=== PATIENT | female | born 1935 | race African-American/Black ===

== ENCOUNTER 2017-03-31 13:35 | Emergency (ER) | payer MEDICARE, MEDICAID ==
[~2017-03-31] VITALS: Ht 160 cm; Wt 82.0 kg
[2017-03-31] MEDS ORDERED: MORPHINE SULFATE 4 MG/ML CPJ (NOT FOR IM USE) IV STA (14:13)
[2017-03-31] MEDS ORDERED: ONDANSETRON HCL 4MG/2ML VIAL IV STA (14:13)
[2017-03-31] MEDS ORDERED: ASPIRIN 81MG TABLET PO ONE (14:15)
[2017-03-31] MEDS ORDERED: LABETALOL HCL 20MG/4ML CARPUJECT IV ONE (14:15)
[2017-03-31 15:06] LABS: BASOPHILS % 0.6 % (0.0-2.0); DIFFERENTIAL COMMENT 0; EOSINOPHILS % 4.4 % (0.0-5.0); HEMATOCRIT. 36.4 % (36.0-48.0); HEMOGLOBIN. 11.5 g/dL (12.0-16.0); LYMPHOCYTES % 20.8 % (20.0-50.0); MEAN CORPUSCULAR HEMOGLOBIN 25.2 pg (28.0-32.0); MEAN CORPUSCULAR HGB CONC 31.6 g/dL (31.0-37.0); MEAN CORPUSCULAR VOLUME 79.5 fL (81.0-99.0); MEAN PLATELET VOLUME 7.9 fl (7.4-10.4); MONOCYTES % 8.8 % (2.0-8.0); NEUTROPHILS % 65.4 % (40.0-76.0); PLATELET 295 x1000/uL (130-400); RED BLOOD CELL COUNT 4.57 mill/uL (4.2-5.4); RED CELL DISTRIBUTION WIDTH 18.4 % (11.6-14.6); WHITE BLOOD COUNT 5.4 x1000/uL (4.5-11.0)
[2017-03-31 15:22] LABS: ALANINE AMINOTRANSFERASE 11 IU/L (13-61); ANION GAP 10; CALCIUM 8.4 mg/dL (8.5-10.1); CARBON DIOXIDE 28 mEq/L (21-32); CHLORIDE 108 mEq/L (98-107); ETHANOL BLOOD < 10 mg/dL; INDEX HEMOLYSI 2 (1-3); INDEX ICTERIC 1 (1-4); INDEX LIPEMIC 1 (1-3); LIPASE 177 IU/L (73-393); NT PRO B-TYPE NATRIURETIC PEP 145 pg/mL (5-125); TROPONIN I < 0.02 ng/mL (0.00-0.04); UREA NITROGEN BLOOD 18 mg/dL (7-21); eGFR > 60 mL/min (>60)
[2017-03-31 15:59] LABS: D-DIMER 4.32 mg/L FEU (<0.50); PARTIAL THROMBOPLASTIN TIME 26.8 sec (24.0-34.0); PROTHROMBIN TIME 10.9 sec
[2017-03-31] MEDS ORDERED: SODIUM CHLORIDE 0.9% 1,000 ML IV NR (16:06)
[2017-03-31 17:39] VITALS: BP 172/77
[2017-03-31 19:35] LABS: CLARITY URINE CLEAR (CLEAR); COLOR URINE YELLOW (YELLOW); GLUCOSE URINE NEGATIVE (NEGATIVE); KETONES URINE NEGATIVE (NEGATIVE); LEUKOCYTE ESTERASE URINE NEGATIVE (NEGATIVE); NITRITE URINE NEGATIVE (NEGATIVE); OCCULT BLOOD URINE NEGATIVE (NEGATIVE); PH URINE 5.5 (4.5-8.0); PROTEIN URINE NEGATIVE (NEGATIVE); SPECIFIC GRAVITY URINE 1.088 (1.005-1.030)
[2017-03-31 20:25] LABS: *AMPHETAMINES SCREEN URINE NEGATIVE (NEGATIVE); *BARBITURATES SCREEN URINE NEGATIVE (NEGATIVE); *BENZODIAZEPINES SCREEN URINE NEGATIVE (NEGATIVE); *COCAINE SCREEN URINE NEGATIVE (NEGATIVE); CANNABINOID URINE SCREEN PRESUMTIVE POSITIVE (NEGATIVE); ECSTASY MDMA SCREEN URINE NEGATIVE (NEGATIVE); METHADONE URINE SCREEN NEGATIVE (NEGATIVE); OPIATES URINE SCREEN PRESUMTIVE POSITIVE (NEGATIVE); PHENCYCLIDINE URINE SCREEN NEGATIVE (NEGATIVE)
== END 2017-03-31 20:08 | disposition home or self-care (01) ==
LOC: ER 15:54
DX: J44.1 Chronic obstructive pulmonary disease with (acute) exacerbation (principal); G89.29 Other chronic pain; I10 Essential (primary) hypertension; I45.10 Unspecified right bundle-branch block; D50.9 Iron deficiency anemia, unspecified; F17.210 Nicotine dependence, cigarettes, uncomplicated
CPT/HCPCS: 36415; 71010; 71275; 80053; 80305; 81003; 83605; 83690; 83880; 84484; 85025; 85379; 85610; 85730; 93005; 96374; 96375; 99285; G0482; J2270; J2405; J3490

== ENCOUNTER 2021-03-26 10:16 | Inpatient (IN) | payer MEDICARE, MEDICAID ==
[~2021-03-26] VITALS: Ht 170.2 cm; Wt 81.4 kg
[~2021-03-26 10:16] MED LIST: APIX5TAB MT; APIX5TAB PO; CIPR-263 MT; FAMO-135 PO
[2021-03-26] MEDS ORDERED: ETOMIDATE 2MG/ML 10ML VIAL IV ONE ×2 (10:45→11:07)
[2021-03-26] MEDS ORDERED: HYDRALAZINE 20MG/ML VIAL IV ONE (10:45)
[2021-03-26] MEDS ORDERED: PROPOFOL 10MG/ML 100ML 100 ML IV ONE (10:45)
[2021-03-26] MEDS ORDERED: SUCCINYLCHOLINE CHLORIDE 200MG/10ML IV ONE ×2 (10:45→11:07)
[2021-03-26 11:42] LABS: BASOPHILS % 0.4 % (0.0-2.0); EOSINOPHILS % 0.3 % (0.0-5.0); HEMATOCRIT. 46.3 % (36.0-48.0); HEMOGLOBIN. 14.8 g/dL (12.0-16.0); LYMPHOCYTES % 11.7 % (20.0-50.0); MEAN CORPUSCULAR HEMOGLOBIN 28.7 pg (28.0-32.0); MEAN CORPUSCULAR VOLUME 89.7 fL (81.0-99.0); MEAN PLATELET VOLUME 8.5 fl (7.4-10.4); MONOCYTES % 3.3 % (2.0-8.0); NEUTROPHILS % 84.3 % (40.0-76.0); PLATELET 220 x1000/uL (130-400); RED BLOOD CELL COUNT 5.16 mill/uL (4.2-5.4); RED CELL DISTRIBUTION WIDTH 15.4 % (11.6-14.6)
[2021-03-26 11:45] LABS: BG BASE EXCESS -0.2 mmol/L (-2.0-2.0); BG CARBOXYHEMOGLOBIN 0.5 % (0.5-1.5); BG DEOXYHEMOGLOBIN 0.2 % (0.0-5.0); BG FRACTION INSPIRED OXYGEN 100; BG HCO3 ACT 27.2 mmol/L (22.0-26.0); BG METHEMOGLOBIN 0.5 % (0.0-1.5); BG OXYGEN SATURATION 99.8 % (92.0-98.5); BG OXYHEMOGLOBIN 98.8 % (94.0-97.0); BG PH 7.312 (7.350-7.450); BG PO2 509.7 mmHg (75.0-100.0); BG SAMPLE SITE RIGHT RADIAL; BG TOTAL HEMOGLOBIN 15.8 g/dL (12.0-18.0); BG VENT MODE VENT - AC
[2021-03-26 11:45] LABS: CHLORIDE 107 mEq/L (98-107)
[2021-03-26 11:50] LABS: ETHANOL BLOOD < 10 mg/dL
[2021-03-26 12:28] LABS: CLARITY URINE CLEAR (CLEAR); COLOR URINE YELLOW (YELLOW); KETONES URINE NEGATIVE (NEGATIVE); LEUKOCYTE ESTERASE URINE NEGATIVE (NEGATIVE); NITRITE URINE POSITIVE (NEGATIVE); OCCULT BLOOD URINE TRACE (NEGATIVE); PROTEIN URINE 3+ (NEGATIVE); SPECIFIC GRAVITY URINE 1.014 (1.005-1.030); UROBILINOGEN URINE 0.2 E.U./dL (0.2-1.0)
[2021-03-26] MEDS ORDERED: MIDAZOLAM HCL 100 MG in SODIUM CHLORIDE 0.9% 100 ML IV PRN (12:45)
[2021-03-26] MEDS ORDERED: MIDAZOLAM 100MG/100ML PMX 100 ML IV PRN (12:45)
[2021-03-26 12:57] LABS: *AMPHETAMINES SCREEN URINE NEGATIVE (NEGATIVE); *BARBITURATES SCREEN URINE NEGATIVE (NEGATIVE); *BENZODIAZEPINES SCREEN URINE PRESUMTIVE POSITIVE (NEGATIVE); *COCAINE SCREEN URINE NEGATIVE (NEGATIVE); CANNABINOID URINE SCREEN PRESUMTIVE POSITIVE (NEGATIVE); METHADONE URINE SCREEN NEGATIVE (NEGATIVE); OPIATES URINE SCREEN NEGATIVE (NEGATIVE); PHENCYCLIDINE URINE SCREEN NEGATIVE (NEGATIVE)
[2021-03-26] MEDS ORDERED: LEVOFLOXACIN 750MG PREMIX 150 ML IV ONE (13:30)
[2021-03-26 14:17] LABS: BG BASE EXCESS 0.8 mmol/L (-2.0-2.0); BG CARBOXYHEMOGLOBIN 0.3 % (0.5-1.5); BG DEOXYHEMOGLOBIN 0.5 % (0.0-5.0); BG FRACTION INSPIRED OXYGEN 60; BG HCO3 ACT 26.2 mmol/L (22.0-26.0); BG METHEMOGLOBIN 0.3 % (0.0-1.5); BG OXYGEN SATURATION 99.5 % (92.0-98.5); BG OXYHEMOGLOBIN 98.9 % (94.0-97.0); BG PCO2 44.2 mmHg (35.0-45.0); BG PO2 275.8 mmHg (75.0-100.0); BG SAMPLE SITE RIGHT RADIAL; BG TOTAL HEMOGLOBIN 15.6 g/dL (12.0-18.0); BG VENT MODE VENT - AC
[2021-03-26] MEDS ORDERED: DOCUSATE SODIUM 100MG CAPSULE PO PRN (15:15)
[2021-03-26] MEDS ORDERED: ONDANSETRON HCL 4MG/2ML INJ IV PRN (15:15)
[2021-03-26] MEDS ORDERED: MAGNESIUM/ALUMINUM HYDROXIDE/SIMETHICONE 30ML UDC PO PRN (15:15)
[2021-03-26] MEDS ORDERED: ACETAMINOPHEN 650MG SUPP PR PRN (15:15)
[2021-03-26] MEDS ORDERED: NA PHOS,M-B/NA PHOS,DI-BA ENEMA 118ML PR PRN (15:15)
[2021-03-26] MEDS ORDERED: GUAIFENESIN 200MG/10ML SUGAR FREE UDC PO PRN (15:15)
[2021-03-26] MEDS ORDERED: CLONIDINE 0.1MG TABLET PO PRN (15:15)
[2021-03-26] MEDS ORDERED: LORAZEPAM 0.5MG TABLET PO PRN (15:15)
[2021-03-26] MEDS ORDERED: ACETAMINOPHEN 325MG TABLET PO PRN (15:15)
[2021-03-26] MEDS ORDERED: IPRATROPIUM/ALBUTEROL 0.5-3(2.5)MG/3ML NEB NEB PRN (15:15)
[2021-03-26] MEDS ORDERED: MORPHINE SULFATE 2 MG/ML CPJ (NOT FOR IM USE) IV PRN (15:15)
[2021-03-26] MEDS ORDERED: HYDROCODONE/ACETAMINOPHEN 5/325MG TABLET PO PRN (15:15)
[2021-03-26] MEDS ORDERED: FENTANYL CITRATE/PF 1,000 MCG in SODIUM CHLORIDE 0.9% 80 ML IV PRN (16:00)
[2021-03-26] MEDS ORDERED: MIDAZOLAM HCL 100 MG in SODIUM CHLORIDE 0.9% 80 ML IV PRN (16:00)
[2021-03-26] MEDS ORDERED: FENTANYL CITRATE 2,500 MCG in SODIUM CHLORIDE 0.9% 200 ML IV PRN (16:00)
[2021-03-26] MEDS: VANCOMYCIN 750 MG PREMIX 150 ML IV SCH (16:16)
[2021-03-26] MEDS: PIPERACILLIN/TAZ 3.375G PREMIX 50 ML IV SCH ×2 (16:32→23:33)
[2021-03-26] MEDS: ASPIRIN 81MG TABLET PO SCH (16:32)
[2021-03-26] MEDS ORDERED: HYDRALAZINE 20MG/ML VIAL IV PRN (16:45)
[2021-03-26] MEDS ORDERED: LORAZEPAM 2MG/ML CPJ IV PRN (16:45)
[2021-03-26] MEDS: PANTOPRAZOLE SODIUM 40 MG/VIAL IV SCH (17:22)
[2021-03-26] MEDS: FUROSEMIDE 40MG/4ML VIAL IVP SCH (17:22)
[2021-03-26] MEDS: ENOXAPARIN 40MG/0.4ML SYR SUBCUT SCH (17:38)
[2021-03-26] MEDS: AMLODIPINE 5MG TABLET PO SCH (18:10)
[2021-03-26 19:13] LABS: INR 1.1; PROTHROMBIN TIME 12.1 sec (9.6-11.0)
[2021-03-26] MEDS: IPRATROPIUM/ALBUTEROL 0.5-3(2.5)MG/3ML NEB NEB SCH (20:40)
[2021-03-26] MEDS ORDERED: LEVETIRACETAM 500MG PREMIX 100 ML IV SCH (21:00)
[2021-03-26] MEDS: MIDAZOLAM HCL 100 MG in SODIUM CHLORIDE 0.9% 80 ML IV PRN (21:52)
[2021-03-26 23:30] LABS: CREATINE KINASE MB FRACTION 5.9 ng/mL (0.5-3.6)
[2021-03-27] VITALS (58 sets, daily range): BP systolic 90–174; BP diastolic 58–95
[2021-03-27] MEDS: VANCOMYCIN 750 MG PREMIX 150 ML IV SCH (01:13)
[2021-03-27] MEDS: IPRATROPIUM/ALBUTEROL 0.5-3(2.5)MG/3ML NEB NEB SCH ×4 (02:32→20:40)
[2021-03-27 05:24] LABS: HEMATOCRIT. 46.3 % (36.0-48.0); HEMOGLOBIN. 14.9 g/dL (12.0-16.0); MEAN CORPUSCULAR VOLUME 87.4 fL (81.0-99.0); RED CELL DISTRIBUTION WIDTH 15.7 % (11.6-14.6)
[2021-03-27 06:22] LABS: CHLORIDE 101 mEq/L (98-107)
[2021-03-27 06:31] LABS: CREATINE KINASE MB FRACTION 5.3 ng/mL (0.5-3.6); LDL CHOLESTEROL 50 mg/dL (5-100)
[2021-03-27 06:32] LABS: CREATINE KINASE 256 IU/L (26-192); HDL CHOLESTEROL 59 mg/dL (40-59)
[2021-03-27 06:34] LABS: T4 FREE 1.15 ng/dL (0.76-1.46)
[2021-03-27] MEDS: AMLODIPINE 5MG TABLET PO SCH (09:00)
[2021-03-27] MEDS: ASPIRIN 81MG TABLET PO SCH (09:00)
[2021-03-27 09:15] LABS: BG BASE EXCESS 6.2 mmol/L (-2.0-2.0); BG CARBOXYHEMOGLOBIN 0.2 % (0.5-1.5); BG DEOXYHEMOGLOBIN 0.5 % (0.0-5.0); BG FRACTION INSPIRED OXYGEN 60; BG HCO3 ACT 31.4 mmol/L (22.0-26.0); BG METHEMOGLOBIN 0.3 % (0.0-1.5); BG OXYGEN SATURATION 99.5 % (92.0-98.5); BG PCO2 47.2 mmHg (35.0-45.0); BG PH 7.441 (7.350-7.450); BG PO2 275.7 mmHg (75.0-100.0); BG SAMPLE SITE RIGHT RADIAL; BG TOTAL HEMOGLOBIN 14.9 g/dL (12.0-18.0); BG VENT MODE VENT - AC
[2021-03-27 10:19] LABS: MEAN PLATELET VOLUME 8.9 fl (7.4-10.4); PLATELET 190 x1000/uL (130-400); PLATELET ESTIMATE NORMAL
[2021-03-27] MEDS: MIDAZOLAM HCL 100 MG in SODIUM CHLORIDE 0.9% 80 ML IV PRN ×2 (11:48→18:05)
[2021-03-27] MEDS: PANTOPRAZOLE SODIUM 40 MG/VIAL IV SCH ×2 (11:49→18:06)
[2021-03-27] MEDS: FUROSEMIDE 40MG/4ML VIAL IVP SCH (11:49)
[2021-03-27] MEDS: PIPERACILLIN/TAZOBACTAM 3.375 G in DEXT 5% WATER 100 ML IV SCH ×3 (11:50→20:33)
[2021-03-27] MEDS: LEVETIRACETAM 500MG PREMIX 100 ML IV SCH ×2 (11:52→20:33)
[2021-03-27] MEDS: ENOXAPARIN 40MG/0.4ML SYR SUBCUT SCH (18:06)
[2021-03-28] VITALS (74 sets, daily range): BP systolic 106–162; BP diastolic 56–104
[2021-03-28] MEDS: IPRATROPIUM/ALBUTEROL 0.5-3(2.5)MG/3ML NEB NEB SCH ×4 (02:03→20:31)
[2021-03-28] MEDS ORDERED: ATOR40TA70 MT (02:35)
[2021-03-28] MEDS ORDERED: CARV12.545 PO (02:35)
[2021-03-28] MEDS ORDERED: DIVA125C2 MT (02:35)
[2021-03-28] MEDS ORDERED: FERR325T6 MT (02:35)
[2021-03-28] MEDS ORDERED: DONE23TA3 PO (02:35)
[2021-03-28] MEDS ORDERED: TRAZ-251 PO (02:35)
[2021-03-28] MEDS: PIPERACILLIN/TAZOBACTAM 3.375 G in DEXT 5% WATER 100 ML IV SCH (03:14)
[2021-03-28 05:43] LABS: BASOPHILS % 0.7 % (0.0-2.0); EOSINOPHILS % 1.8 % (0.0-5.0); HEMATOCRIT. 45.3 % (36.0-48.0); HEMOGLOBIN. 14.3 g/dL (12.0-16.0); LYMPHOCYTES % 15.2 % (20.0-50.0); MEAN CORPUSCULAR VOLUME 88.7 fL (81.0-99.0); MEAN PLATELET VOLUME 8.9 fl (7.4-10.4); MONOCYTES % 10.2 % (2.0-8.0); NEUTROPHILS % 72.1 % (40.0-76.0); PLATELET 190 x1000/uL (130-400); RED BLOOD CELL COUNT 5.11 mill/uL (4.2-5.4); RED CELL DISTRIBUTION WIDTH 15.8 % (11.6-14.6)
[2021-03-28 06:03] LABS: CHLORIDE 100 mEq/L (98-107)
[2021-03-28] MEDS: ASPIRIN 81MG TABLET PO SCH (10:09)
[2021-03-28] MEDS: AMLODIPINE 5MG TABLET PO SCH (10:09)
[2021-03-28] MEDS: FUROSEMIDE 40MG/4ML VIAL IVP SCH (10:09)
[2021-03-28] MEDS: LEVETIRACETAM 500MG PREMIX 100 ML IV SCH ×2 (10:10→20:23)
[2021-03-28] MEDS ORDERED: POTASSIUM CHLORIDE 20MEQ TABLET SR PO NR (10:45)
[2021-03-28] MEDS ORDERED: DILTIAZEM HCL 5MG/ML 5ML VIAL IV NR (11:45)
[2021-03-28] MEDS: PANTOPRAZOLE SODIUM 40 MG/VIAL IV SCH ×2 (11:51→17:28)
[2021-03-28] MEDS: DILTIAZEM HCL 30MG TABLET PO SCH ×3 (12:00→23:27)
[2021-03-28 14:55] LABS: BG BASE EXCESS 7.3 mmol/L (-2.0-2.0); BG CARBOXYHEMOGLOBIN 0.7 % (0.5-1.5); BG DEOXYHEMOGLOBIN 0.8 % (0.0-5.0); BG FRACTION INSPIRED OXYGEN 40; BG METHEMOGLOBIN 0.3 % (0.0-1.5); BG OXYGEN SATURATION 99.2 % (92.0-98.5); BG OXYHEMOGLOBIN 98.2 % (94.0-97.0); BG PCO2 40.2 mmHg (35.0-45.0); BG PH 7.505 (7.350-7.450); BG PO2 173.1 mmHg (75.0-100.0); BG SAMPLE SITE RIGHT RADIAL; BG TOTAL HEMOGLOBIN 14.5 g/dL (12.0-18.0); BG VENT MODE VENT - AC
[2021-03-28] MEDS ORDERED: LEVOFLOXACIN 500MG PREMIX 100 ML IV SCH (15:30)
[2021-03-28] MEDS: ENOXAPARIN 40MG/0.4ML SYR SUBCUT SCH (17:29)
[2021-03-28] MEDS: ATORVASTATIN CALCIUM 10MG TABLET PO SCH (20:24)
[2021-03-28] MEDS ORDERED: METOPROLOL TARTRATE 25MG TABLET PO SCH (21:00)
[2021-03-29] VITALS (47 sets, daily range): BP systolic 112–155; BP diastolic 53–80
[2021-03-29] MEDS: IPRATROPIUM/ALBUTEROL 0.5-3(2.5)MG/3ML NEB NEB SCH ×4 (01:31→20:27)
[2021-03-29] MEDS: DILTIAZEM HCL 30MG TABLET PO SCH ×4 (05:25→23:48)
[2021-03-29 05:41] LABS: BASOPHILS % 0.5 % (0.0-2.0); EOSINOPHILS % 1.8 % (0.0-5.0); HEMATOCRIT. 41.3 % (36.0-48.0); HEMOGLOBIN. 13.3 g/dL (12.0-16.0); LYMPHOCYTES % 13.1 % (20.0-50.0); MEAN PLATELET VOLUME 8.8 fl (7.4-10.4); MONOCYTES % 11.3 % (2.0-8.0); NEUTROPHILS % 73.3 % (40.0-76.0); PLATELET 196 x1000/uL (130-400); RED BLOOD CELL COUNT 4.75 mill/uL (4.2-5.4); RED CELL DISTRIBUTION WIDTH 16.2 % (11.6-14.6)
[2021-03-29 05:46] LABS: CHLORIDE 101 mEq/L (98-107)
[2021-03-29] MEDS: ASPIRIN 81MG TABLET PO SCH (08:43)
[2021-03-29] MEDS: FUROSEMIDE 40MG/4ML VIAL IVP SCH (08:43)
[2021-03-29] MEDS: PANTOPRAZOLE SODIUM 40 MG/VIAL IV SCH ×2 (08:43→16:29)
[2021-03-29] MEDS: LEVETIRACETAM 500MG PREMIX 100 ML IV SCH ×2 (08:43→21:19)
[2021-03-29 09:41] LABS: BG BASE EXCESS 7.6 mmol/L (-2.0-2.0); BG CARBOXYHEMOGLOBIN 0.1 % (0.5-1.5); BG DEOXYHEMOGLOBIN 1.9 % (0.0-5.0); BG FRACTION INSPIRED OXYGEN 30; BG METHEMOGLOBIN 0.3 % (0.0-1.5); BG OXYGEN SATURATION 98.1 % (92.0-98.5); BG OXYHEMOGLOBIN 97.7 % (94.0-97.0); BG PCO2 43.8 mmHg (35.0-45.0); BG PH 7.482 (7.350-7.450); BG PO2 108.7 mmHg (75.0-100.0); BG SAMPLE SITE RIGHT RADIAL; BG TOTAL HEMOGLOBIN 14.4 g/dL (12.0-18.0); BG VENT MODE VENT - AC
[2021-03-29] MEDS ORDERED: POTASSIUM CHLORIDE INJ 40 MEQ in DEXT 5% WATER 250 ML IV SCH (11:30)
[2021-03-29 12:15] LABS: BG BASE EXCESS 9.9 mmol/L (-2.0-2.0); BG CARBOXYHEMOGLOBIN 0.7 % (0.5-1.5); BG DEOXYHEMOGLOBIN 1.6 % (0.0-5.0); BG FRACTION INSPIRED OXYGEN 30; BG HCO3 ACT 34.3 mmol/L (22.0-26.0); BG METHEMOGLOBIN 0.3 % (0.0-1.5); BG OXYGEN SATURATION 98.4 % (92.0-98.5); BG OXYHEMOGLOBIN 97.4 % (94.0-97.0); BG PCO2 44.7 mmHg (35.0-45.0); BG PH 7.503 (7.350-7.450); BG PO2 109.6 mmHg (75.0-100.0); BG SAMPLE SITE RIGHT RADIAL; BG TOTAL HEMOGLOBIN 14.7 g/dL (12.0-18.0); BG VENT MODE MASK - CPAP
[2021-03-29] MEDS: ENOXAPARIN 40MG/0.4ML SYR SUBCUT SCH (16:29)
[2021-03-29] MEDS: LEVOFLOXACIN 250MG PREMIX 50 ML IV SCH (16:29)
[2021-03-29] MEDS: ATORVASTATIN CALCIUM 10MG TABLET PO SCH (21:19)
[2021-03-30] VITALS (49 sets, daily range): BP systolic 116–157; BP diastolic 49–82
[2021-03-30] MEDS: IPRATROPIUM/ALBUTEROL 0.5-3(2.5)MG/3ML NEB NEB SCH ×4 (02:17→20:04)
[2021-03-30 05:46] LABS: BASOPHILS % 0.9 % (0.0-2.0); EOSINOPHILS % 3.4 % (0.0-5.0); HEMOGLOBIN. 11.6 g/dL (12.0-16.0); LYMPHOCYTES % 15.5 % (20.0-50.0); MEAN CORPUSCULAR HEMOGLOBIN 28.5 pg (28.0-32.0); MEAN CORPUSCULAR VOLUME 85.9 fL (81.0-99.0); MEAN PLATELET VOLUME 8.8 fl (7.4-10.4); MONOCYTES % 9.5 % (2.0-8.0); NEUTROPHILS % 70.7 % (40.0-76.0); PLATELET 171 x1000/uL (130-400); RED BLOOD CELL COUNT 4.08 mill/uL (4.2-5.4)
[2021-03-30 05:54] LABS: CHLORIDE 100 mEq/L (98-107)
[2021-03-30] MEDS: DILTIAZEM HCL 30MG TABLET PO SCH ×4 (06:13→23:46)
[2021-03-30 08:57] LABS: BG BASE EXCESS 6.8 mmol/L (-2.0-2.0); BG CARBOXYHEMOGLOBIN 0.3 % (0.5-1.5); BG DEOXYHEMOGLOBIN 2.6 % (0.0-5.0); BG FRACTION INSPIRED OXYGEN 30; BG HCO3 ACT 30.8 mmol/L (22.0-26.0); BG METHEMOGLOBIN 0.4 % (0.0-1.5); BG OXYGEN SATURATION 97.4 % (92.0-98.5); BG OXYHEMOGLOBIN 96.7 % (94.0-97.0); BG PCO2 41.3 mmHg (35.0-45.0); BG PO2 93.1 mmHg (75.0-100.0); BG SAMPLE SITE RIGHT RADIAL; BG TOTAL HEMOGLOBIN 12.7 g/dL (12.0-18.0); BG VENT MODE VENT - AC
[2021-03-30] MEDS: FUROSEMIDE 40MG/4ML VIAL IVP SCH (09:05)
[2021-03-30] MEDS: PANTOPRAZOLE SODIUM 40 MG/VIAL IV SCH ×2 (09:05→17:14)
[2021-03-30] MEDS: LEVETIRACETAM 500MG PREMIX 100 ML IV SCH ×2 (09:05→21:02)
[2021-03-30] MEDS: ASPIRIN 81MG TABLET PO SCH (09:05)
[2021-03-30] MEDS ORDERED: LACTULOSE 20G/30ML UDC PO SCH (12:00)
[2021-03-30] MEDS ORDERED: POTASSIUM CHLORIDE INJ 40 MEQ in DEXT 5% WATER 250 ML IV SCH (13:00)
[2021-03-30 13:02] LABS: BG BASE EXCESS 9.3 mmol/L (-2.0-2.0); BG CARBOXYHEMOGLOBIN 0.6 % (0.5-1.5); BG DEOXYHEMOGLOBIN 1.8 % (0.0-5.0); BG FRACTION INSPIRED OXYGEN 30; BG HCO3 ACT 34.7 mmol/L (22.0-26.0); BG METHEMOGLOBIN 0.3 % (0.0-1.5); BG OXYGEN SATURATION 98.2 % (92.0-98.5); BG OXYHEMOGLOBIN 97.3 % (94.0-97.0); BG PCO2 50.2 mmHg (35.0-45.0); BG PH 7.458 (7.350-7.450); BG PO2 115.6 mmHg (75.0-100.0); BG SAMPLE SITE LEFT RADIAL; BG TOTAL HEMOGLOBIN 13.5 g/dL (12.0-18.0); BG VENT MODE VENT - CPAP
[2021-03-30] MEDS: LEVOFLOXACIN 250MG PREMIX 50 ML IV SCH (14:53)
[2021-03-30] MEDS ORDERED: LORAZEPAM 2MG/ML CPJ IV PRN (16:45)
[2021-03-30 17:12] LABS: BG BASE EXCESS 8.5 mmol/L (-2.0-2.0); BG CARBOXYHEMOGLOBIN 0.6 % (0.5-1.5); BG DEOXYHEMOGLOBIN 1.1 % (0.0-5.0); BG FRACTION INSPIRED OXYGEN 40; BG HCO3 ACT 34.8 mmol/L (22.0-26.0); BG METHEMOGLOBIN 0.4 % (0.0-1.5); BG OXYGEN SATURATION 98.9 % (92.0-98.5); BG OXYHEMOGLOBIN 97.9 % (94.0-97.0); BG PCO2 55.3 mmHg (35.0-45.0); BG PH 7.417 (7.350-7.450); BG PO2 140.8 mmHg (75.0-100.0); BG SAMPLE SITE LEFT RADIAL; BG TOTAL HEMOGLOBIN 13.2 g/dL (12.0-18.0); BG VENT MODE COOL AEROSOL
[2021-03-30] MEDS: ENOXAPARIN 40MG/0.4ML SYR SUBCUT SCH (17:15)
[2021-03-30] MEDS: DOCUSATE SODIUM 100MG CAPSULE PO SCH (17:15)
[2021-03-30] MEDS ORDERED: MORPHINE SULFATE 2 MG/ML CPJ (NOT FOR IM USE) IV PRN (19:15)
[2021-03-30] MEDS: ATORVASTATIN CALCIUM 10MG TABLET PO SCH (21:02)
[2021-03-31] VITALS (48 sets, daily range): BP systolic 99–164; BP diastolic 34–102
[2021-03-31] MEDS: IPRATROPIUM/ALBUTEROL 0.5-3(2.5)MG/3ML NEB NEB SCH ×4 (01:41→20:04)
[2021-03-31] MEDS: DILTIAZEM HCL 30MG TABLET PO SCH ×3 (05:27→18:36)
[2021-03-31 05:45] LABS: BASOPHILS % 0.5 % (0.0-2.0); HEMOGLOBIN. 12.3 g/dL (12.0-16.0); MEAN CORPUSCULAR VOLUME 86.6 fL (81.0-99.0); MEAN PLATELET VOLUME 8.6 fl (7.4-10.4); MONOCYTES % 13.7 % (2.0-8.0); NEUTROPHILS % 61.8 % (40.0-76.0); PLATELET 194 x1000/uL (130-400); RED BLOOD CELL COUNT 4.39 mill/uL (4.2-5.4); RED CELL DISTRIBUTION WIDTH 15.9 % (11.6-14.6)
[2021-03-31 06:21] LABS: CHLORIDE 104 mEq/L (98-107)
[2021-03-31] MEDS: LEVETIRACETAM 500MG PREMIX 100 ML IV SCH ×2 (08:59→21:04)
[2021-03-31] MEDS: POTASSIUM CHLORIDE 20MEQ TABLET SR PO SCH (09:00)
[2021-03-31] MEDS: ASPIRIN 81MG TABLET PO SCH (09:00)
[2021-03-31] MEDS: FUROSEMIDE 40MG/4ML VIAL IVP SCH (09:00)
[2021-03-31] MEDS: PANTOPRAZOLE SODIUM 40 MG/VIAL IV SCH ×2 (09:01→17:27)
[2021-03-31] MEDS: DOCUSATE SODIUM 100MG CAPSULE PO SCH ×2 (09:01→17:27)
[2021-03-31 09:43] LABS: BG BASE EXCESS 5.4 mmol/L (-2.0-2.0); BG CARBOXYHEMOGLOBIN 0.8 % (0.5-1.5); BG DEOXYHEMOGLOBIN 11.3 % (0.0-5.0); BG FRACTION INSPIRED OXYGEN 21; BG HCO3 ACT 30.5 mmol/L (22.0-26.0); BG METHEMOGLOBIN 0.3 % (0.0-1.5); BG OXYGEN SATURATION 88.6 % (92.0-98.5); BG OXYHEMOGLOBIN 87.6 % (94.0-97.0); BG PCO2 46.8 mmHg (35.0-45.0); BG PH 7.432 (7.350-7.450); BG PO2 53.9 mmHg (75.0-100.0); BG SAMPLE SITE RIGHT RADIAL; BG TOTAL HEMOGLOBIN 12.6 g/dL (12.0-18.0); BG VENT MODE ROOM AIR
[2021-03-31] MEDS: DIPHENHYDRAMINE 50MG/ML VIAL IV PRN ×2 (12:28→17:27)
[2021-03-31] MEDS: LEVOFLOXACIN 250MG PREMIX 50 ML IV SCH (15:47)
[2021-03-31] MEDS: ENOXAPARIN 40MG/0.4ML SYR SUBCUT SCH (17:28)
[2021-03-31] MEDS: ATORVASTATIN CALCIUM 10MG TABLET PO SCH (21:03)
[2021-04-01] VITALS (15 sets, daily range): BP systolic 115–166; BP diastolic 52–87
[2021-04-01] MEDS: DILTIAZEM HCL 30MG TABLET PO SCH ×4 (01:15→17:03)
[2021-04-01] MEDS: IPRATROPIUM/ALBUTEROL 0.5-3(2.5)MG/3ML NEB NEB SCH ×3 (02:10→15:07)
[2021-04-01] MEDS: ASPIRIN 81MG TABLET PO SCH (09:00)
[2021-04-01] MEDS: POTASSIUM CHLORIDE 20MEQ TABLET SR PO SCH (09:00)
[2021-04-01] MEDS: FUROSEMIDE 40MG/4ML VIAL IVP SCH (09:00)
[2021-04-01] MEDS: PANTOPRAZOLE SODIUM 40 MG/VIAL IV SCH ×2 (09:00→16:28)
[2021-04-01] MEDS: DOCUSATE SODIUM 100MG CAPSULE PO SCH ×2 (09:00→16:28)
[2021-04-01] MEDS: LEVETIRACETAM 500MG PREMIX 100 ML IV SCH (09:01)
[2021-04-01] MEDS ORDERED: LEVOFLOXACIN 250MG TABLET PO SCH (15:30)
[2021-04-01 16:05] LABS: BASOPHILS % 1.1 % (0.0-2.0); EOSINOPHILS % 5.6 % (0.0-5.0); HEMATOCRIT. 39.7 % (36.0-48.0); LYMPHOCYTES % 21.4 % (20.0-50.0); MEAN CORPUSCULAR HEMOGLOBIN 28.7 pg (28.0-32.0); MEAN CORPUSCULAR VOLUME 87.7 fL (81.0-99.0); MEAN PLATELET VOLUME 8.6 fl (7.4-10.4); MONOCYTES % 14.6 % (2.0-8.0); NEUTROPHILS % 57.3 % (40.0-76.0); PLATELET 226 x1000/uL (130-400); RED BLOOD CELL COUNT 4.53 mill/uL (4.2-5.4); RED CELL DISTRIBUTION WIDTH 15.4 % (11.6-14.6)
[2021-04-01 16:14] LABS: CHLORIDE 104 mEq/L (98-107)
[2021-04-01] MEDS: ENOXAPARIN 40MG/0.4ML SYR SUBCUT SCH (17:03)
[2021-04-01] MEDS ORDERED: KEPP500 PO (20:05)
[2021-04-01] MEDS ORDERED: DILT30TA38 PO (20:06)
[2021-04-01] MEDS ORDERED: LEVETIRACETAM 500MG TABLET PO SCH (21:00)
== END 2021-04-01 21:02 | DRG 207 ==
LOC: ER 10:16 → MICUSO 13:55 → MICUNO 03-27 07:22 → 5WST 04-01 03:24
PROVIDERS: ADMIT Internal Medicine; ATTEND Internal Medicine
PROC: 5A1955Z Respiratory Ventilation, Greater than 96 Consecutive Hours (ICD-10-PCS; principal; 2021-03-26)
PROC: 0BH17EZ Insertion of Endotracheal Airway into Trachea, Via Natural or Artificial Opening (ICD-10-PCS; 2021-03-26)
PROC: 4A10X4Z Monitoring of Central Nervous Electrical Activity, External Approach (ICD-10-PCS; 2021-03-27)
PROC: 02HV33Z Insertion of Infusion Device into Superior Vena Cava, Percutaneous Approach (ICD-10-PCS; 2021-03-28)
PROC: B548ZZA Ultrasonography of Superior Vena Cava, Guidance (ICD-10-PCS; 2021-03-28)
DX: J96.00 Acute respiratory failure, unspecified whether with hypoxia or hypercapnia (principal); J69.0 Pneumonitis due to inhalation of food and vomit; I50.33 Acute on chronic diastolic (congestive) heart failure; I21.A1 Myocardial infarction type 2; N39.0 Urinary tract infection, site not specified; E87.2 Acidosis; G40.909 Epilepsy, unspecified, not intractable, without status epilepticus; E87.5 Hyperkalemia; F03.90 Unspecified dementia, unspecified severity, without behavioral disturbance, psychotic disturbance, mood disturbance, and anxiety; I27.20 Pulmonary hypertension, unspecified; Z20.822 Contact with and (suspected) exposure to COVID-19; E66.9 Obesity, unspecified; R73.9 Hyperglycemia, unspecified; B96.20 Unspecified Escherichia coli [E. coli] as the cause of diseases classified elsewhere; E78.5 Hyperlipidemia, unspecified; I11.0 Hypertensive heart disease with heart failure; I25.2 Old myocardial infarction; Z79.01 Long term (current) use of anticoagulants; Z82.49 Family history of ischemic heart disease and other diseases of the circulatory system; Z86.718 Personal history of other venous thrombosis and embolism; Z86.73 Personal history of transient ischemic attack (TIA), and cerebral infarction without residual deficits; Z78.1 Physical restraint status; Z68.28 Body mass index [BMI] 28.0-28.9, adult
CPT/HCPCS: 36415; 36600; 70551; 71045; 76937; 80048; 80053; 80061; 80305; 80320; 81003; 82140; 82375; 82550; 82553; 82805; 82962; 83036; 83605; 83880; 84132; 84439; 84443; 84484; 85025; 86850; 86900; 87070; 87077; 87186; 87426; 92610; 93005; 93306; 93880; 93970; 94002; 94003; 94640; 94660; 95816; 97162; 99291; A6261; C1725; C9113; J0330; J0360; J1200; J1650; J1940; J1953; J1956; J2250; J2543; J2704; J3010; J3370; J3480; J3490; J7040; J7050; J7060; G0480

== ENCOUNTER 2021-05-22 12:58 | Emergency (ER) | payer MEDICARE, MEDICAID ==
[~2021-05-22] VITALS: Ht 167.6 cm; Wt 70.0 kg
[~2021-05-22 12:58] MED LIST changes: +ATOR40TA70 MT; +CARV12.545 PO; +DILT30TA38 PO; +DIVA125C2 MT; +DONE23TA3 PO; +FERR325T6 MT; +KEPP500 PO; +TRAZ-251 PO
[2021-05-22] MEDS ORDERED: CEPH500T MT ×3 (13:41→13:42)
[2021-05-22] MEDS ORDERED: MUPI22OI2 TP (13:41)
[2021-05-22 14:01] VITALS: BP 140/76
== END 2021-05-22 14:01 | disposition home or self-care (01) ==
LOC: ER 12:58
DX: R21 Rash and other nonspecific skin eruption (principal); G40.909 Epilepsy, unspecified, not intractable, without status epilepticus; F03.90 Unspecified dementia, unspecified severity, without behavioral disturbance, psychotic disturbance, mood disturbance, and anxiety; Z86.73 Personal history of transient ischemic attack (TIA), and cerebral infarction without residual deficits
CPT/HCPCS: 99283

== ENCOUNTER 2021-07-24 10:01 | Inpatient (IN) | payer MEDICARE, MEDICAID ==
[~2021-07-24] VITALS: Ht 162.6 cm; Wt 83.5 kg
[~2021-07-24 10:01] MED LIST changes: +CEPH500T MT; +ETOMIDATE 2MG/ML 10ML VIAL IV ONE; +MUPI22OI2 TP; +SUCCINYLCHOLINE CHLORIDE 200MG/10ML IV ONE
[2021-07-24] MEDS ORDERED: LEVETIRACETAM 1000MG PREMIX 100 ML IV ONE (10:30)
[2021-07-24 11:07] LABS: CHLORIDE 108 mEq/L (98-107)
[2021-07-24 11:10] LABS: BASOPHILS % 0.4 % (0.0-2.0); EOSINOPHILS % 2.7 % (0.0-5.0); HEMATOCRIT. 44.1 % (36.0-48.0); HEMOGLOBIN. 14.6 g/dL (12.0-16.0); LYMPHOCYTES % 25.7 % (20.0-50.0); MEAN CORPUSCULAR HEMOGLOBIN 29.2 pg (28.0-32.0); MEAN CORPUSCULAR VOLUME 88.4 fL (81.0-99.0); MEAN PLATELET VOLUME 8.7 fl (7.4-10.4); MONOCYTES % 5.6 % (2.0-8.0); NEUTROPHILS % 65.6 % (40.0-76.0); PLATELET 246 x1000/uL (130-400); RED BLOOD CELL COUNT 4.99 mill/uL (4.2-5.4); RED CELL DISTRIBUTION WIDTH 16.7 % (11.6-14.6)
[2021-07-24 11:12] LABS: ETHANOL BLOOD < 10 mg/dL
[2021-07-24] MEDS ORDERED: SUCCINYLCHOLINE CHLORIDE 200MG/10ML IV ONE (12:15)
[2021-07-24] MEDS ORDERED: ETOMIDATE 2MG/ML 10ML VIAL IV ONE (12:15)
[2021-07-24] MEDS ORDERED: PROPOFOL 10MG/ML 100ML 100 ML IV ONE (12:15)
[2021-07-24 13:20] LABS: BG BASE EXCESS -4.1 mmol/L (-2.0-2.0); BG CARBOXYHEMOGLOBIN 0.4 % (0.5-1.5); BG DEOXYHEMOGLOBIN 0.6 % (0.0-5.0); BG FRACTION INSPIRED OXYGEN 100; BG METHEMOGLOBIN 0.5 % (0.0-1.5); BG OXYGEN SATURATION 99.4 % (92.0-98.5); BG OXYHEMOGLOBIN 98.5 % (94.0-97.0); BG PCO2 62.5 mmHg (35.0-45.0); BG PO2 298.5 mmHg (75.0-100.0); BG SAMPLE SITE RIGHT RADIAL; BG TOTAL HEMOGLOBIN 15.7 g/dL (12.0-18.0); BG VENT MODE VENT - AC
[2021-07-24] MEDS ORDERED: NOREPINEPHRINE 8MG/250ML PMX 250 ML IV STA (13:38)
[2021-07-24 14:23] LABS: CLARITY URINE CLOUDY (CLEAR); COLOR URINE YELLOW (YELLOW); KETONES URINE NEGATIVE (NEGATIVE); LEUKOCYTE ESTERASE URINE NEGATIVE (NEGATIVE); NITRITE URINE NEGATIVE (NEGATIVE); OCCULT BLOOD URINE 2+ (NEGATIVE); PROTEIN URINE 3+ (NEGATIVE); SPECIFIC GRAVITY URINE 1.015 (1.005-1.030); UROBILINOGEN URINE 0.2 E.U./dL (0.2-1.0)
[2021-07-24 15:13] LABS: *AMPHETAMINES SCREEN URINE NEGATIVE (NEGATIVE); *BARBITURATES SCREEN URINE NEGATIVE (NEGATIVE); *BENZODIAZEPINES SCREEN URINE NEGATIVE (NEGATIVE); *COCAINE SCREEN URINE NEGATIVE (NEGATIVE)
[2021-07-24 15:14] LABS: CANNABINOID URINE SCREEN PRESUMTIVE POSITIVE (NEGATIVE); METHADONE URINE SCREEN NEGATIVE (NEGATIVE); OPIATES URINE SCREEN NEGATIVE (NEGATIVE); PHENCYCLIDINE URINE SCREEN NEGATIVE (NEGATIVE)
[2021-07-24] MEDS ORDERED: NA PHOS,M-B/NA PHOS,DI-BA ENEMA 118ML PR PRN (16:45)
[2021-07-24] MEDS ORDERED: IPRATROPIUM/ALBUTEROL 0.5-3(2.5)MG/3ML NEB NEB PRN (16:45)
[2021-07-24] MEDS ORDERED: NOREPINEPHRINE 8MG/250ML PMX 250 ML IV PRN (16:45)
[2021-07-24] MEDS ORDERED: DIPHENHYDRAMINE 50MG/ML VIAL IV PRN (16:45)
[2021-07-24] MEDS ORDERED: CLONIDINE 0.1MG TABLET PO PRN (16:45)
[2021-07-24] MEDS ORDERED: HYDROCODONE/ACETAMINOPHEN 5/325MG TABLET PO PRN (16:45)
[2021-07-24] MEDS ORDERED: GUAIFENESIN 200MG/10ML SUGAR FREE UDC PO PRN (16:45)
[2021-07-24] MEDS ORDERED: ONDANSETRON HCL 4MG/2ML INJ IV PRN (16:45)
[2021-07-24] MEDS ORDERED: MAGNESIUM/ALUMINUM HYDROXIDE/SIMETHICONE 30ML UDC PO PRN (16:45)
[2021-07-24] MEDS ORDERED: DOCUSATE SODIUM 100MG CAPSULE PO PRN (16:45)
[2021-07-24] MEDS ORDERED: LEVETIRACETAM 500 MG in SODIUM CHLORIDE 0.9% 100 ML IV SCH (16:45)
[2021-07-24] MEDS ORDERED: LEVETIRACETAM 1,000 MG in SODIUM CHLORIDE 0.9% 100 ML IV SCH (16:45)
[2021-07-24] MEDS ORDERED: ACETAMINOPHEN 650MG SUPP PR PRN (16:45)
[2021-07-24] MEDS ORDERED: ACETAMINOPHEN 325MG TABLET PO PRN (16:45)
[2021-07-24] MEDS ORDERED: LORAZEPAM 0.5MG TABLET PO PRN (16:45)
[2021-07-24] MEDS ORDERED: NOREPINEPHRINE 8 MG in DEXTROSE 5% WATER 250 ML IV PRN (17:00)
[2021-07-24] MEDS: PROPOFOL 10MG/ML 100ML 100 ML IV PRN (17:08)
[2021-07-24] MEDS: FAMOTIDINE 20MG/2ML VIAL IV SCH (17:08)
[2021-07-24] MEDS: FUROSEMIDE 40MG/4ML VIAL IVP SCH (17:08)
[2021-07-24 18:00] LABS: BG BASE EXCESS 2.2 mmol/L (-2.0-2.0); BG CARBOXYHEMOGLOBIN 0.2 % (0.5-1.5); BG DEOXYHEMOGLOBIN 0.7 % (0.0-5.0); BG FRACTION INSPIRED OXYGEN 70; BG HCO3 ACT 27.2 mmol/L (22.0-26.0); BG METHEMOGLOBIN 0.4 % (0.0-1.5); BG OXYGEN SATURATION 99.3 % (92.0-98.5); BG OXYHEMOGLOBIN 98.7 % (94.0-97.0); BG PCO2 43.5 mmHg (35.0-45.0); BG PH 7.414 (7.350-7.450); BG PO2 229.6 mmHg (75.0-100.0); BG SAMPLE SITE RIGHT BRACHIAL; BG TOTAL HEMOGLOBIN 15.3 g/dL (12.0-18.0); BG VENT MODE VENT - AC
[2021-07-24] MEDS ORDERED: PIPERACILLIN/TAZOBACTAM 3.375G in DEXT 5% WATER 50ML IV SCH ×2 (18:00→22:00)
[2021-07-24] MEDS: PIPERACILLIN/TAZOBACTAM 3.375 G in DEXTROSE 5% WATER 50 ML IV SCH (18:02)
[2021-07-24] MEDS: INSULIN LISPRO 100 UNITS/ML SUBCUT SCH ×2 (19:40→21:00)
[2021-07-24] MEDS: APIXABAN 5 MG TABLET PO SCH (19:45)
[2021-07-24] MEDS: LEVETIRACETAM 1000MG PREMIX 100 ML IV SCH (20:47)
[2021-07-24] MEDS ORDERED: LEVETIRACETAM 500MG PREMIX 100 ML IV SCH (21:00)
[2021-07-24] MEDS: BLOOD SUGAR DIAGNOSTIC STRIP TEST SCH (21:04)
[2021-07-25 00:02] LABS: CREATINE KINASE MB FRACTION 6.7 ng/mL (0.5-3.6)
[2021-07-25] MEDS ORDERED: ASPIRIN 325MG TABLET PO NR (00:45)
[2021-07-25] MEDS: PIPERACILLIN/TAZOBACTAM 3.375 G in DEXTROSE 5% WATER 50 ML IV SCH ×3 (01:05→18:35)
[2021-07-25 05:27] LABS: HEMATOCRIT. 42.3 % (36.0-48.0); HEMOGLOBIN. 14.3 g/dL (12.0-16.0); MEAN CORPUSCULAR HEMOGLOBIN 29.3 pg (28.0-32.0); MEAN CORPUSCULAR VOLUME 86.6 fL (81.0-99.0); RED BLOOD CELL COUNT 4.88 mill/uL (4.2-5.4); RED CELL DISTRIBUTION WIDTH 16.6 % (11.6-14.6)
[2021-07-25 05:37] LABS: CHLORIDE 106 mEq/L (98-107)
[2021-07-25 05:49] LABS: LDL CHOLESTEROL 54 mg/dL (5-100)
[2021-07-25 05:50] LABS: CREATINE KINASE 287 IU/L (26-192); CREATINE KINASE MB FRACTION 4.4 ng/mL (0.5-3.6); HDL CHOLESTEROL 60 mg/dL (40-59); T4 FREE 1.02 ng/dL (0.76-1.46)
[2021-07-25] MEDS: INSULIN LISPRO 100 UNITS/ML SUBCUT SCH ×4 (06:56→21:00)
[2021-07-25] MEDS: BLOOD SUGAR DIAGNOSTIC STRIP TEST SCH ×4 (06:56→21:26)
[2021-07-25] MEDS: APIXABAN 5 MG TABLET PO SCH ×2 (09:52→18:35)
[2021-07-25] MEDS: FAMOTIDINE 20MG/2ML VIAL IV SCH (09:52)
[2021-07-25] MEDS: FUROSEMIDE 40MG/4ML VIAL IVP SCH (09:52)
[2021-07-25] MEDS: LEVETIRACETAM 1000MG PREMIX 100 ML IV SCH ×2 (09:52→21:32)
[2021-07-25 10:43] LABS: BG CARBOXYHEMOGLOBIN 0.3 % (0.5-1.5); BG DEOXYHEMOGLOBIN 0.8 % (0.0-5.0); BG HCO3 ACT 28.4 mmol/L (22.0-26.0); BG METHEMOGLOBIN 0.4 % (0.0-1.5); BG OXYGEN SATURATION 99.2 % (92.0-98.5); BG OXYHEMOGLOBIN 98.5 % (94.0-97.0); BG PCO2 34.2 mmHg (35.0-45.0); BG PH 7.537 (7.350-7.450); BG PO2 173.4 mmHg (75.0-100.0); BG SAMPLE SITE RIGHT RADIAL; BG TOTAL HEMOGLOBIN 14.8 g/dL (12.0-18.0); BG VENT MODE VENT - AC
[2021-07-25 11:31] LABS: NUCLEATED RED BLOOD CELLS 1 /100 WBC; PLATELET ESTIMATE NORMAL
[2021-07-25 11:32] LABS: MEAN PLATELET VOLUME 8.8 fl (7.4-10.4); PLATELET 156 x1000/uL (130-400)
[2021-07-25] MEDS: PROPOFOL 10MG/ML 100ML 100 ML IV PRN ×2 (11:42→18:50)
[2021-07-25] MEDS: DEXTROSE 50% WATER 50ML SYRINGE IV PRN (17:49)
[2021-07-25] MEDS: HYDRALAZINE 20MG/ML VIAL IV PRN (23:03)
[2021-07-25] MEDS: PROPOFOL 10 MG/ML 100 ML IV PRN (23:26)
[2021-07-26] VITALS (40 sets, daily range): BP systolic 133–179; BP diastolic 68–102
[2021-07-26] MEDS: PIPERACILLIN/TAZOBACTAM 3.375 G in DEXTROSE 5% WATER 50 ML IV SCH ×2 (01:54→09:42)
[2021-07-26 04:49] LABS: BASOPHILS % 0.4 % (0.0-2.0); EOSINOPHILS % 1.5 % (0.0-5.0); HEMATOCRIT. 39.7 % (36.0-48.0); HEMOGLOBIN. 13.2 g/dL (12.0-16.0); LYMPHOCYTES % 14.8 % (20.0-50.0); MEAN CORPUSCULAR VOLUME 87.4 fL (81.0-99.0); MEAN PLATELET VOLUME 8.2 fl (7.4-10.4); MONOCYTES % 9.7 % (2.0-8.0); NEUTROPHILS % 73.6 % (40.0-76.0); PLATELET 169 x1000/uL (130-400); RED BLOOD CELL COUNT 4.55 mill/uL (4.2-5.4); RED CELL DISTRIBUTION WIDTH 16.8 % (11.6-14.6)
[2021-07-26 05:11] LABS: CHLORIDE 106 mEq/L (98-107)
[2021-07-26 05:17] LABS: LDL CHOLESTEROL 57 mg/dL (5-100)
[2021-07-26 05:18] LABS: CREATINE KINASE 151 IU/L (26-192); HDL CHOLESTEROL 54 mg/dL (40-59)
[2021-07-26 05:23] LABS: CREATINE KINASE MB FRACTION 1.7 ng/mL (0.5-3.6)
[2021-07-26] MEDS: PROPOFOL 10 MG/ML 100 ML IV PRN (05:23)
[2021-07-26] MEDS: HYDRALAZINE 20MG/ML VIAL IV PRN ×3 (05:45→21:52)
[2021-07-26] MEDS ORDERED: POTASSIUM CHLORIDE INJ 50 MEQ in DEXT 5% WATER 500 ML IV NR (06:00)
[2021-07-26] MEDS: INSULIN LISPRO 100 UNITS/ML SUBCUT SCH ×4 (06:53→21:24)
[2021-07-26] MEDS: BLOOD SUGAR DIAGNOSTIC STRIP TEST SCH ×4 (06:53→21:24)
[2021-07-26] MEDS: DEXTROSE 50% WATER 50ML SYRINGE IV PRN (07:00)
[2021-07-26] MEDS: ASPIRIN 325MG TABLET PO SCH (09:00)
[2021-07-26] MEDS: APIXABAN 5 MG TABLET PO SCH ×2 (09:00→16:33)
[2021-07-26] MEDS ORDERED: MAGNESIUM 2 G PREMIX 50 ML IV ONE (09:15)
[2021-07-26 09:20] LABS: BG BASE EXCESS 4.9 mmol/L (-2.0-2.0); BG CARBOXYHEMOGLOBIN 0.5 % (0.5-1.5); BG DEOXYHEMOGLOBIN 3.1 % (0.0-5.0); BG FRACTION INSPIRED OXYGEN 100; BG HCO3 ACT 29.3 mmol/L (22.0-26.0); BG METHEMOGLOBIN 0.3 % (0.0-1.5); BG OXYGEN SATURATION 96.9 % (92.0-98.5); BG OXYHEMOGLOBIN 96.1 % (94.0-97.0); BG PCO2 42.8 mmHg (35.0-45.0); BG PH 7.454 (7.350-7.450); BG PO2 88.6 mmHg (75.0-100.0); BG SAMPLE SITE RIGHT RADIAL; BG TOTAL HEMOGLOBIN 13.9 g/dL (12.0-18.0); BG VENT MODE VENT - AC
[2021-07-26] MEDS: FAMOTIDINE 20MG/2ML VIAL IV SCH (09:34)
[2021-07-26] MEDS: FUROSEMIDE 40MG/4ML VIAL IVP SCH (09:34)
[2021-07-26] MEDS: LEVETIRACETAM 1000MG PREMIX 100 ML IV SCH ×2 (09:42→21:26)
[2021-07-26 13:19] LABS: CHLORIDE 107 mEq/L (98-107)
[2021-07-26] MEDS ORDERED: POTASSIUM CHLORIDE 20MEQ TABLET SR PO SCH (14:15)
[2021-07-26 15:20] LABS: BG BASE EXCESS 4.3 mmol/L (-2.0-2.0); BG CARBOXYHEMOGLOBIN 0.3 % (0.5-1.5); BG DEOXYHEMOGLOBIN 0.7 % (0.0-5.0); BG FRACTION INSPIRED OXYGEN 50; BG HCO3 ACT 28.4 mmol/L (22.0-26.0); BG METHEMOGLOBIN 0.4 % (0.0-1.5); BG OXYGEN SATURATION 99.3 % (92.0-98.5); BG OXYHEMOGLOBIN 98.6 % (94.0-97.0); BG PCO2 40.6 mmHg (35.0-45.0); BG PH 7.463 (7.350-7.450); BG PO2 183.8 mmHg (75.0-100.0); BG SAMPLE SITE RIGHT RADIAL; BG TOTAL HEMOGLOBIN 15.6 g/dL (12.0-18.0); BG VENT MODE VENT - AC
[2021-07-26] MEDS: PIPERACILLIN/TAZOBACTAM 3.375G in DEXT 5% WATER 50ML IV SCH ×2 (18:20→21:26)
[2021-07-26 18:54] LABS: BG BASE EXCESS 4.1 mmol/L (-2.0-2.0); BG CARBOXYHEMOGLOBIN 0.2 % (0.5-1.5); BG DEOXYHEMOGLOBIN 1.2 % (0.0-5.0); BG HCO3 ACT 30.3 mmol/L (22.0-26.0); BG METHEMOGLOBIN 0.4 % (0.0-1.5); BG OXYGEN SATURATION 98.8 % (92.0-98.5); BG OXYHEMOGLOBIN 98.2 % (94.0-97.0); BG PCO2 50.9 mmHg (35.0-45.0); BG PH 7.392 (7.350-7.450); BG PO2 152.4 mmHg (75.0-100.0); BG SAMPLE SITE RIGHT RADIAL; BG TOTAL HEMOGLOBIN 15.2 g/dL (12.0-18.0); BG VENT MODE VENT - CPAP
[2021-07-27] VITALS (80 sets, daily range): BP systolic 116–182; BP diastolic 42–88
[2021-07-27] MEDS: PIPERACILLIN/TAZOBACTAM 3.375G in DEXT 5% WATER 50ML IV SCH ×3 (05:32→22:03)
[2021-07-27 05:49] LABS: CHLORIDE 106 mEq/L (98-107)
[2021-07-27] MEDS: INSULIN LISPRO 100 UNITS/ML SUBCUT SCH ×4 (06:20→21:00)
[2021-07-27] MEDS: BLOOD SUGAR DIAGNOSTIC STRIP TEST SCH ×4 (06:20→21:00)
[2021-07-27 06:22] LABS: BASOPHILS % 0.5 % (0.0-2.0); EOSINOPHILS % 1.2 % (0.0-5.0); HEMATOCRIT. 43.5 % (36.0-48.0); HEMOGLOBIN. 14.1 g/dL (12.0-16.0); LYMPHOCYTES % 9.6 % (20.0-50.0); MEAN CORPUSCULAR HEMOGLOBIN 28.8 pg (28.0-32.0); MEAN CORPUSCULAR VOLUME 88.8 fL (81.0-99.0); MEAN PLATELET VOLUME 8.8 fl (7.4-10.4); MONOCYTES % 10.7 % (2.0-8.0); PLATELET 176 x1000/uL (130-400); RED BLOOD CELL COUNT 4.89 mill/uL (4.2-5.4); RED CELL DISTRIBUTION WIDTH 17.3 % (11.6-14.6)
[2021-07-27] MEDS ORDERED: NALOXONE HCL 0.4MG/ML VIAL IV PRN (08:00)
[2021-07-27] MEDS: LEVETIRACETAM 1000MG PREMIX 100 ML IV SCH ×2 (08:08→22:03)
[2021-07-27] MEDS: FAMOTIDINE 20MG/2ML VIAL IV SCH (08:09)
[2021-07-27] MEDS: APIXABAN 5 MG TABLET PO SCH ×2 (08:09→16:58)
[2021-07-27] MEDS: ASPIRIN 325MG TABLET PO SCH (08:09)
[2021-07-27 09:14] LABS: BG BASE EXCESS 5.8 mmol/L (-2.0-2.0); BG CARBOXYHEMOGLOBIN 0.9 % (0.5-1.5); BG DEOXYHEMOGLOBIN 3.5 % (0.0-5.0); BG FRACTION INSPIRED OXYGEN 30; BG HCO3 ACT 30.6 mmol/L (22.0-26.0); BG METHEMOGLOBIN 0.3 % (0.0-1.5); BG OXYGEN SATURATION 96.5 % (92.0-98.5); BG OXYHEMOGLOBIN 95.3 % (94.0-97.0); BG PH 7.451 (7.350-7.450); BG PO2 84.7 mmHg (75.0-100.0); BG SAMPLE SITE RIGHT RADIAL; BG TOTAL HEMOGLOBIN 14.2 g/dL (12.0-18.0); BG VENT MODE VENT - CPAP
[2021-07-27] MEDS ORDERED: POTASSIUM CHLORIDE 20MEQ/PACKET PO SCH (09:30)
[2021-07-27] MEDS: AMLODIPINE 10MG TABLET PO SCH (09:37)
[2021-07-27] MEDS: FUROSEMIDE 40MG/4ML VIAL IVP SCH (09:37)
[2021-07-27] MEDS ORDERED: POTASSIUM CHLORIDE 20MEQ/PACKET PO NR (14:00)
[2021-07-28] VITALS (12 sets, daily range): BP systolic 111–158; BP diastolic 56–87
[2021-07-28 05:46] LABS: BASOPHILS % 0.7 % (0.0-2.0); EOSINOPHILS % 7.7 % (0.0-5.0); HEMATOCRIT. 41.8 % (36.0-48.0); HEMOGLOBIN. 13.5 g/dL (12.0-16.0); LYMPHOCYTES % 13.3 % (20.0-50.0); MEAN CORPUSCULAR HEMOGLOBIN 29.3 pg (28.0-32.0); MEAN CORPUSCULAR VOLUME 90.3 fL (81.0-99.0); MONOCYTES % 12.6 % (2.0-8.0); NEUTROPHILS % 65.7 % (40.0-76.0); PLATELET 168 x1000/uL (130-400); RED BLOOD CELL COUNT 4.63 mill/uL (4.2-5.4); RED CELL DISTRIBUTION WIDTH 16.9 % (11.6-14.6)
[2021-07-28 05:53] LABS: CHLORIDE 107 mEq/L (98-107)
[2021-07-28] MEDS: PIPERACILLIN/TAZOBACTAM 3.375G in DEXT 5% WATER 50ML IV SCH ×3 (06:08→21:52)
[2021-07-28] MEDS: BLOOD SUGAR DIAGNOSTIC STRIP TEST SCH ×4 (07:30→20:28)
[2021-07-28] MEDS: INSULIN LISPRO 100 UNITS/ML SUBCUT SCH ×4 (08:00→20:28)
[2021-07-28] MEDS: LEVETIRACETAM 1000MG PREMIX 100 ML IV SCH ×2 (08:54→20:29)
[2021-07-28] MEDS: FUROSEMIDE 40MG/4ML VIAL IVP SCH (08:55)
[2021-07-28] MEDS: APIXABAN 5 MG TABLET PO SCH ×2 (08:55→17:35)
[2021-07-28] MEDS: FAMOTIDINE 20MG/2ML VIAL IV SCH (08:55)
[2021-07-28] MEDS: ASPIRIN 81MG TABLET PO SCH (08:55)
[2021-07-28] MEDS: AMLODIPINE 10MG TABLET PO SCH (08:55)
[2021-07-28] MEDS ORDERED: POTASSIUM CHLORIDE 20MEQ/PACKET PO SCH (09:15)
[2021-07-28 10:37] LABS: BG BASE EXCESS 6.4 mmol/L (-2.0-2.0); BG CARBOXYHEMOGLOBIN 0.9 % (0.5-1.5); BG DEOXYHEMOGLOBIN 10.7 % (0.0-5.0); BG HCO3 ACT 31.6 mmol/L (22.0-26.0); BG METHEMOGLOBIN 0.3 % (0.0-1.5); BG OXYGEN SATURATION 89.2 % (92.0-98.5); BG OXYHEMOGLOBIN 88.1 % (94.0-97.0); BG PCO2 47.2 mmHg (35.0-45.0); BG PH 7.444 (7.350-7.450); BG PO2 55.3 mmHg (75.0-100.0); BG SAMPLE SITE RIGHT RADIAL; BG TOTAL HEMOGLOBIN 14.8 g/dL (12.0-18.0); BG VENT MODE ROOM AIR
[2021-07-28] MEDS ORDERED: POTASSIUM CHLORIDE 20MEQ/PACKET PO NR (15:00)
[2021-07-28] MEDS ORDERED: KEPP500 PO (16:04)
[2021-07-28] MEDS ORDERED: TRAZ-251 PO (16:06)
[2021-07-28] MEDS ORDERED: DONE5TAB7 PO (16:08)
[2021-07-28] MEDS: IPRATROPIUM/ALBUTEROL 0.5-3(2.5)MG/3ML NEB HHN SCH (21:08)
[2021-07-29] VITALS (9 sets, daily range): BP systolic 107–142; BP diastolic 53–75
[2021-07-29] MEDS: IPRATROPIUM/ALBUTEROL 0.5-3(2.5)MG/3ML NEB HHN SCH ×3 (02:45→14:34)
[2021-07-29] MEDS: BLOOD SUGAR DIAGNOSTIC STRIP TEST SCH ×3 (06:25→17:51)
[2021-07-29] MEDS: PIPERACILLIN/TAZOBACTAM 3.375G in DEXT 5% WATER 50ML IV SCH ×2 (06:32→15:28)
[2021-07-29] MEDS: INSULIN LISPRO 100 UNITS/ML SUBCUT SCH ×3 (06:51→17:50)
[2021-07-29 08:17] LABS: BASOPHILS % 0.8 % (0.0-2.0); EOSINOPHILS % 8.3 % (0.0-5.0); HEMATOCRIT. 39.2 % (36.0-48.0); HEMOGLOBIN. 12.8 g/dL (12.0-16.0); LYMPHOCYTES % 20.8 % (20.0-50.0); MEAN CORPUSCULAR HEMOGLOBIN 29.3 pg (28.0-32.0); MEAN CORPUSCULAR VOLUME 89.8 fL (81.0-99.0); MEAN PLATELET VOLUME 8.5 fl (7.4-10.4); MONOCYTES % 14.8 % (2.0-8.0); NEUTROPHILS % 55.3 % (40.0-76.0); PLATELET 170 x1000/uL (130-400); RED BLOOD CELL COUNT 4.37 mill/uL (4.2-5.4); RED CELL DISTRIBUTION WIDTH 16.2 % (11.6-14.6)
[2021-07-29 08:59] LABS: CHLORIDE 106 mEq/L (98-107)
[2021-07-29] MEDS: FAMOTIDINE 20MG/2ML VIAL IV SCH (08:59)
[2021-07-29] MEDS: ASPIRIN 81MG TABLET PO SCH (08:59)
[2021-07-29] MEDS: FUROSEMIDE 40MG/4ML VIAL IVP SCH (08:59)
[2021-07-29] MEDS: AMLODIPINE 10MG TABLET PO SCH (09:00)
[2021-07-29] MEDS: APIXABAN 5 MG TABLET PO SCH ×2 (10:17→17:59)
[2021-07-29] MEDS: LEVETIRACETAM 1000MG PREMIX 100 ML IV SCH (10:17)
[2021-07-30] MEDS ORDERED: FAMOTIDINE 20MG TABLET PO SCH (09:00)
[2021-07-30] MEDS ORDERED: LEVETIRACETAM 500MG TABLET PO SCH (09:00)
== END 2021-07-29 20:05 | DRG 871 ==
LOC: ER 10:08 → MICUSO 13:13 → EDBEDREQTM 13:15 → EDBEDREQSVC 13:15 → EDBEDREQ 13:15 → MICUNO 07-26 12:44 → 5EST 07-27 21:20 → 6WST 07-29 02:01
PROVIDERS: ADMIT Internal Medicine; ATTEND Internal Medicine
PROC: 5A1945Z Respiratory Ventilation, 24-96 Consecutive Hours (ICD-10-PCS; principal; 2021-07-24)
PROC: 0BH17EZ Insertion of Endotracheal Airway into Trachea, Via Natural or Artificial Opening (ICD-10-PCS; 2021-07-24)
PROC: 4A10X4Z Monitoring of Central Nervous Electrical Activity, External Approach (ICD-10-PCS; 2021-07-27)
DX: A41.9 Sepsis, unspecified organism (principal); J18.9 Pneumonia, unspecified organism; J96.00 Acute respiratory failure, unspecified whether with hypoxia or hypercapnia; I21.4 Non-ST elevation (NSTEMI) myocardial infarction; E87.2 Acidosis; I50.32 Chronic diastolic (congestive) heart failure; E87.3 Alkalosis; E78.5 Hyperlipidemia, unspecified; E87.6 Hypokalemia; E83.42 Hypomagnesemia; I27.20 Pulmonary hypertension, unspecified; G40.401 Other generalized epilepsy and epileptic syndromes, not intractable, with status epilepticus; Z20.822 Contact with and (suspected) exposure to COVID-19; R73.9 Hyperglycemia, unspecified; F03.90 Unspecified dementia, unspecified severity, without behavioral disturbance, psychotic disturbance, mood disturbance, and anxiety; I11.0 Hypertensive heart disease with heart failure; Z79.01 Long term (current) use of anticoagulants; I25.2 Old myocardial infarction; Z82.49 Family history of ischemic heart disease and other diseases of the circulatory system; Z86.718 Personal history of other venous thrombosis and embolism; Z86.73 Personal history of transient ischemic attack (TIA), and cerebral infarction without residual deficits; Z79.899 Other long term (current) drug therapy
CPT/HCPCS: 36415; 36600; 70551; 71045; 80048; 80053; 80061; 80076; 80165; 80305; 80320; 81003; 82140; 82248; 82375; 82550; 82553; 82805; 82962; 83036; 83735; 84439; 84443; 84478; 84484; 85025; 87426; 92610; 93005; 93306; 93970; 94002; 94003; 94640; 95816; 97162; 99291; J0330; J0360; J1940; J1953; J2543; J2704; J3475; J3480; J3490; J7040; J7060; A4315; G0480

== ENCOUNTER 2021-09-29 20:12 | Emergency (ER) | payer MEDICARE, MEDICAID ==
[~2021-09-29] VITALS: Ht 167.6 cm; Wt 89.0 kg
[~2021-09-29 20:12] MED LIST changes: -APIX5TAB PO; -CEPH500T MT; -CIPR-263 MT; -DILT30TA38 PO; -DONE23TA3 PO; +DONE5TAB7 PO; -ETOMIDATE 2MG/ML 10ML VIAL IV ONE; -SUCCINYLCHOLINE CHLORIDE 200MG/10ML IV ONE
[2021-09-29 21:40] VITALS: BP 127/63
== END 2021-09-29 22:20 | disposition home or self-care (01) ==
LOC: ER 20:12
DX: R60.9 Edema, unspecified (principal); L97.429 Non-pressure chronic ulcer of left heel and midfoot with unspecified severity; I49.9 Cardiac arrhythmia, unspecified; Z79.899 Other long term (current) drug therapy
CPT/HCPCS: 93005; 99283

== ENCOUNTER 2021-10-08 14:09 | Inpatient (IN) | payer MEDICARE, MEDICAID ==
[~2021-10-08] VITALS: Ht 170.2 cm; Wt 86.2 kg
[2021-10-08] MEDS ORDERED: AMPICILLIN SOD/SULBACTAM NA 3 G in SODIUM CHLORIDE 0.9% 100 ML IV SCH (17:45)
[2021-10-08] MEDS ORDERED: SODIUM CHLORIDE 0.9% 1000ML BAG (SEPSIS BOLUS) IV ONE (17:45)
[2021-10-08] MEDS ORDERED: ASPIRIN 81MG TABLET PO ONE (18:00)
[2021-10-08] MEDS ORDERED: DIPHENHYDRAMINE 50MG/ML VIAL IV ONE (18:00)
[2021-10-08] MEDS ORDERED: NITROGLYCERIN OINT 1GM/INCH UDPKT TD ONE (19:00)
[2021-10-08] MEDS ORDERED: FUROSEMIDE 40MG/4ML VIAL IV ONE (19:00)
[2021-10-08 20:12] LABS: BASOPHILS % 0.9 % (0.0-2.0); EOSINOPHILS % 5.7 % (0.0-5.0); HEMOGLOBIN. 13.8 g/dL (12.0-16.0); LYMPHOCYTES % 29.6 % (20.0-50.0); MEAN CORPUSCULAR HEMOGLOBIN 29.3 pg (28.0-32.0); MEAN PLATELET VOLUME 8.2 fl (7.4-10.4); MONOCYTES % 10.6 % (2.0-8.0); NEUTROPHILS % 53.2 % (40.0-76.0); PLATELET 273 x1000/uL (130-400); RED BLOOD CELL COUNT 4.72 mill/uL (4.2-5.4); RED CELL DISTRIBUTION WIDTH 14.6 % (11.6-14.6)
[2021-10-08 20:16] LABS: CHLORIDE 106 mEq/L (98-107)
[2021-10-08 20:24] LABS: INR 1.1; PROTHROMBIN TIME 11.9 sec (9.6-11.0)
[2021-10-08] MEDS ORDERED: SULFACETAMIDE SODIUM 10% OPHTH DROPS 15ML RIGHTEYE SCH (21:00)
[2021-10-09 09:00] VITALS: BP 129/68
[2021-10-09 10:00] VITALS: BP 143/79
[2021-10-09 10:29] VITALS: BP 129/68
[2021-10-09 12:00] VITALS: BP 143/79
[2021-10-09 12:41] VITALS: BP 143/79
== END 2021-10-09 13:45 | disposition short-term general hospital (02) | DRG 292 ==
LOC: ER 14:09 → 6WST 23:22 → EDBEDREQ 23:52 → EDBEDREQTM 23:52 → EDBEDREQSVC 23:52 → ENRESERV 10-09 05:05
PROVIDERS: ADMIT Internal Medicine; ATTEND Internal Medicine
DX: I11.0 Hypertensive heart disease with heart failure (principal); L03.213 Periorbital cellulitis; I25.10 Atherosclerotic heart disease of native coronary artery without angina pectoris; I50.9 Heart failure, unspecified; G40.909 Epilepsy, unspecified, not intractable, without status epilepticus; F03.90 Unspecified dementia, unspecified severity, without behavioral disturbance, psychotic disturbance, mood disturbance, and anxiety; K21.9 Gastro-esophageal reflux disease without esophagitis; Z79.02 Long term (current) use of antithrombotics/antiplatelets; Z82.49 Family history of ischemic heart disease and other diseases of the circulatory system; Z86.718 Personal history of other venous thrombosis and embolism; Z20.822 Contact with and (suspected) exposure to COVID-19
CPT/HCPCS: 36415; 71045; 80053; 83605; 83880; 84145; 84484; 85025; 87426; 93005; 93970; 99285; C9803; J0295; J1200; J1940; J7030; J7050; U0003; U0005

== ENCOUNTER 2022-03-09 07:12 | Inpatient (IN) | payer MEDICARE, MEDICAID ==
[~2022-03-09] VITALS: Ht 167.6 cm; Wt 99.6 kg
[2022-03-09] VITALS (8 sets, daily range): BP systolic 129–149; BP diastolic 67–90
[~2022-03-09 07:12] MED LIST changes: +AMOX1TAB15 MT
[2022-03-09] MEDS ORDERED: LORAZEPAM 2MG/ML CPJ IV ONE (07:30)
[2022-03-09] MEDS ORDERED: LEVETIRACETAM 1000MG PREMIX 100 ML IV ONE (07:30)
[2022-03-09 07:53] LABS: BASOPHILS % 0.5 % (0.0-2.0); EOSINOPHILS % 2.2 % (0.0-5.0); HEMATOCRIT. 39.7 % (36.0-48.0); HEMOGLOBIN. 12.8 g/dL (12.0-16.0); LYMPHOCYTES % 15.8 % (20.0-50.0); MEAN CORPUSCULAR HEMOGLOBIN 27.4 pg (28.0-32.0); MEAN CORPUSCULAR VOLUME 84.8 fL (81.0-99.0); MEAN PLATELET VOLUME 7.7 fl (7.4-10.4); MONOCYTES % 8.2 % (2.0-8.0); NEUTROPHILS % 73.3 % (40.0-76.0); PLATELET 284 x1000/uL (130-400); RED BLOOD CELL COUNT 4.68 mill/uL (4.2-5.4); RED CELL DISTRIBUTION WIDTH 16.8 % (11.6-14.6)
[2022-03-09 07:57] LABS: CHLORIDE 107 mEq/L (98-107)
[2022-03-09 08:01] LABS: ETHANOL BLOOD < 10 mg/dL
[2022-03-09 08:05] LABS: CREATINE KINASE 65 IU/L (26-192)
[2022-03-09 08:10] LABS: VALPROIC ACID < 3.0 ug/mL (50-100)
[2022-03-09] MEDS ORDERED: SODIUM CHLORIDE 0.9% 500 ML IV ONE (09:30)
[2022-03-09 13:21] LABS: CLARITY URINE CLEAR (CLEAR); COLOR URINE YELLOW (YELLOW); KETONES URINE NEGATIVE (NEGATIVE); LEUKOCYTE ESTERASE URINE NEGATIVE (NEGATIVE); NITRITE URINE NEGATIVE (NEGATIVE); OCCULT BLOOD URINE 2+ (NEGATIVE); PH URINE 5.5 (4.5-8.0); PROTEIN URINE NEGATIVE (NEGATIVE)
[2022-03-09 13:34] LABS: *AMPHETAMINES SCREEN URINE NEGATIVE (NEGATIVE); *BARBITURATES SCREEN URINE NEGATIVE (NEGATIVE); *BENZODIAZEPINES SCREEN URINE PRESUMTIVE POSITIVE (NEGATIVE); *COCAINE SCREEN URINE NEGATIVE (NEGATIVE); METHADONE URINE SCREEN NEGATIVE (NEGATIVE); OPIATES URINE SCREEN NEGATIVE (NEGATIVE)
[2022-03-09 13:35] LABS: CANNABINOID URINE SCREEN NEGATIVE (NEGATIVE); PHENCYCLIDINE URINE SCREEN NEGATIVE (NEGATIVE)
[2022-03-09] MEDS ORDERED: IPRATROPIUM/ALBUTEROL 0.5-3(2.5)MG/3ML NEB NEB PRN (14:30)
[2022-03-09] MEDS ORDERED: ACETAMINOPHEN 650MG SUPP PR PRN (14:30)
[2022-03-09] MEDS: DEXT 5%/0.45% NACL 1000ML 1,000 ML IV SCH ×2 (14:30→18:22)
[2022-03-09] MEDS ORDERED: LORAZEPAM 2MG/ML CPJ IV PRN (14:30)
[2022-03-09] MEDS ORDERED: POTASSIUM CHLORIDE INJ 40 MEQ in DEXT 5% WATER 250 ML IV ONE (14:30)
[2022-03-09] MEDS ORDERED: MORPHINE SULFATE 2 MG/ML CPJ (NOT FOR IM USE) IV PRN (14:30)
[2022-03-09] MEDS ORDERED: ONDANSETRON HCL 4MG/2ML INJ IV PRN (14:30)
[2022-03-09 15:02] LABS: BG BASE EXCESS 2.5 mmol/L (-2.0-2.0); BG CARBOXYHEMOGLOBIN 0.3 % (0.5-1.5); BG DEOXYHEMOGLOBIN 3.5 % (0.0-5.0); BG HCO3 ACT 28.5 mmol/L (22.0-26.0); BG METHEMOGLOBIN 0.2 % (0.0-1.5); BG OXYGEN SATURATION 96.5 % (92.0-98.5); BG PCO2 49.8 mmHg (35.0-45.0); BG PH 7.376 (7.350-7.450); BG PO2 89.1 mmHg (75.0-100.0); BG SAMPLE SITE RIGHT RADIAL; BG VENT MODE NASAL CANNULA
[2022-03-09 15:29] LABS: INR 1.1; PROTHROMBIN TIME 11.3 sec (9.6-11.0)
[2022-03-09] MEDS ORDERED: PIPERACILLIN/TAZOBACTAM 3.375 G in DEXTROSE 5% WATER 50 ML IV SCH (16:00)
[2022-03-09] MEDS ORDERED: LEVETIRACETAM 500MG PREMIX 100 ML IV SCH (16:30)
[2022-03-09] MEDS: FAMOTIDINE 20MG/2ML VIAL IV SCH (18:22)
[2022-03-09] MEDS: KCL 20MEQ/100ML X 2 FOR TOTAL KCL 40MEQ/200ML IV SCH ×2 (18:23→22:58)
[2022-03-09] MEDS ORDERED: ENOXAPARIN 40MG/0.4ML SYR SUBCUT SCH (21:00)
[2022-03-09] MEDS ORDERED: KCL 20MEQ/100ML X 2 FOR TOTAL KCL 40MEQ/200ML IV SCH (21:15)
[2022-03-09] MEDS: LEVETIRACETAM 500MG PREMIX 100 ML IV SCH (21:35)
[2022-03-09] MEDS: PHENYTOIN SODIUM 100MG/2ML VIAL IV SCH (22:48)
[2022-03-10] VITALS (15 sets, daily range): BP systolic 124–158; BP diastolic 60–96
[2022-03-10] MEDS: PIPERACILLIN/TAZOBACTAM 3.375G in DEXT 5% WATER 50ML IV SCH ×4 (00:05→22:31)
[2022-03-10 01:24] LABS: CREATINE KINASE 593 IU/L (26-192)
[2022-03-10 01:25] LABS: CREATINE KINASE MB FRACTION 4.2 ng/mL (0.5-3.6)
[2022-03-10] MEDS: PHENYTOIN SODIUM 100MG/2ML VIAL IV SCH ×3 (06:24→22:31)
[2022-03-10 08:12] LABS: BASOPHILS % 0.6 % (0.0-2.0); EOSINOPHILS % 3.1 % (0.0-5.0); HEMATOCRIT. 36.8 % (36.0-48.0); HEMOGLOBIN. 11.6 g/dL (12.0-16.0); LYMPHOCYTES % 17.2 % (20.0-50.0); MEAN CORPUSCULAR HEMOGLOBIN 27.1 pg (28.0-32.0); MEAN CORPUSCULAR VOLUME 85.6 fL (81.0-99.0); MEAN PLATELET VOLUME 8.2 fl (7.4-10.4); MONOCYTES % 12.7 % (2.0-8.0); NEUTROPHILS % 66.4 % (40.0-76.0); PLATELET 221 x1000/uL (130-400); RED CELL DISTRIBUTION WIDTH 16.8 % (11.6-14.6)
[2022-03-10 08:27] LABS: CHLORIDE 110 mEq/L (98-107)
[2022-03-10 08:35] LABS: CREATINE KINASE 672 IU/L (26-192)
[2022-03-10 08:38] LABS: CREATINE KINASE MB FRACTION 3.8 ng/mL (0.5-3.6)
[2022-03-10] MEDS: LEVETIRACETAM 500MG PREMIX 100 ML IV SCH ×2 (10:04→21:10)
[2022-03-10] MEDS: FAMOTIDINE 20MG/2ML VIAL IV SCH (10:05)
[2022-03-10] MEDS: FUROSEMIDE 40MG/4ML VIAL IVP SCH (18:37)
[2022-03-10] MEDS: APIXABAN 5 MG TABLET PO SCH (18:37)
[2022-03-10] MEDS: CARVEDILOL 12.5MG TABLET PO SCH (18:48)
[2022-03-11] VITALS (12 sets, daily range): BP systolic 95–147; BP diastolic 60–84
[2022-03-11] MEDS: PHENYTOIN SODIUM 100MG/2ML VIAL IV SCH ×2 (05:49→15:47)
[2022-03-11] MEDS: PIPERACILLIN/TAZOBACTAM 3.375G in DEXT 5% WATER 50ML IV SCH ×2 (05:50→15:47)
[2022-03-11] MEDS ORDERED: DONEPEZIL HCL 5MG TABLET PO SCH (09:00)
[2022-03-11] MEDS ORDERED: ATORVASTATIN CALCIUM 40MG TABLET PO SCH (09:00)
[2022-03-11] MEDS ORDERED: FAMOTIDINE 20MG TABLET PO SCH (09:00)
[2022-03-11] MEDS: FAMOTIDINE 20MG/2ML VIAL IV SCH (09:09)
[2022-03-11] MEDS: FUROSEMIDE 40MG/4ML VIAL IVP SCH (09:09)
[2022-03-11] MEDS: LEVETIRACETAM 500MG PREMIX 100 ML IV SCH (09:09)
[2022-03-11] MEDS: APIXABAN 5 MG TABLET PO SCH ×2 (09:10→17:49)
[2022-03-11] MEDS: CARVEDILOL 12.5MG TABLET PO SCH ×2 (09:11→17:49)
[2022-03-11] MEDS ORDERED: KEPP500 PO (13:51)
[2022-03-11] MEDS ORDERED: LEVO500T89 MT (13:51)
[2022-03-12] MEDS ORDERED: PHENYTOIN SODIUM EXTENDED 100MG CAPSULE PO SCH (06:00)
[2022-03-12] MEDS ORDERED: LEVETIRACETAM 500MG TABLET PO SCH (09:00)
== END 2022-03-11 21:00 | disposition home health service (06) | DRG 100 ==
LOC: ER 07:12 → EDBEDREQSVC 12:59 → EDBEDREQ 15:15 → 5EST 15:16 → ENRESERV 15:19 → CANBEDREQ 03-10 04:34
PROVIDERS: ADMIT Internal Medicine; ATTEND Internal Medicine
DX: G40.901 Epilepsy, unspecified, not intractable, with status epilepticus (principal); L89.623 Pressure ulcer of left heel, stage 3; I50.33 Acute on chronic diastolic (congestive) heart failure; J44.1 Chronic obstructive pulmonary disease with (acute) exacerbation; E87.2 Acidosis; E87.6 Hypokalemia; R31.9 Hematuria, unspecified; F03.90 Unspecified dementia, unspecified severity, without behavioral disturbance, psychotic disturbance, mood disturbance, and anxiety; I11.0 Hypertensive heart disease with heart failure; K21.9 Gastro-esophageal reflux disease without esophagitis; Z86.718 Personal history of other venous thrombosis and embolism; Z82.49 Family history of ischemic heart disease and other diseases of the circulatory system; Z79.899 Other long term (current) drug therapy; I69.30 Unspecified sequelae of cerebral infarction
CPT/HCPCS: 36415; 36600; 70551; 71045; 74176; 80053; 80165; 80185; 80305; 80320; 81003; 82375; 82542; 82550; 82553; 82805; 82962; 83605; 84443; 84484; 85025; 86850; 86900; 93005; 93306; 93970; 99291; J1165; J1650; J1940; J1953; J2543; J3480; J3490; J7060; G0480

== ENCOUNTER 2022-04-30 16:53 | Emergency (ER) | payer MEDICARE, MEDICAID ==
[~2022-04-30] VITALS: Ht 170.2 cm; Wt 110.0 kg
[~2022-04-30 16:53] MED LIST changes: -AMOX1TAB15 MT; +LEVO500T90 MT; -MUPI22OI2 TP
[2022-04-30] MEDS ORDERED: ALBUTEROL (0.083%) 2.5MG/3ML NEB HHN NR (17:07)
[2022-04-30] MEDS ORDERED: ALBUTEROL (0.083%) 2.5MG/3ML NEB HHN STA (17:07)
[2022-04-30] MEDS ORDERED: CEFTRIAXONE 1 G PREMIX 50 ML IV ONE (17:15)
[2022-04-30] MEDS ORDERED: FUROSEMIDE 40MG/4ML VIAL IVP ONE (17:15)
[2022-04-30] MEDS ORDERED: CEFTRIAXONE 1 G PREMIX 50 ML IV NR (17:15)
[2022-04-30] MEDS ORDERED: FUROSEMIDE 40MG/4ML VIAL IVP NR (17:15)
[2022-04-30 18:43] LABS: CHLORIDE 108 mEq/L (98-107)
[2022-04-30 18:45] LABS: INR 1.1; PROTHROMBIN TIME 11.3 sec (9.6-11.0)
[2022-04-30 18:50] LABS: BASOPHILS % 0.6 % (0.0-2.0); EOSINOPHILS % 3.4 % (0.0-5.0); HEMATOCRIT. 38.6 % (36.0-48.0); HEMOGLOBIN. 12.2 g/dL (12.0-16.0); LYMPHOCYTES % 16.6 % (20.0-50.0); MEAN CORPUSCULAR HEMOGLOBIN 25.9 pg (28.0-32.0); MEAN CORPUSCULAR VOLUME 81.9 fL (81.0-99.0); MONOCYTES % 8.7 % (2.0-8.0); NEUTROPHILS % 70.7 % (40.0-76.0); PLATELET 286 x1000/uL (130-400); RED BLOOD CELL COUNT 4.71 mill/uL (4.2-5.4); RED CELL DISTRIBUTION WIDTH 17.3 % (11.6-14.6)
[2022-04-30 20:51] LABS: CLARITY URINE CLEAR (CLEAR); COLOR URINE YELLOW (YELLOW); KETONES URINE NEGATIVE (NEGATIVE); LEUKOCYTE ESTERASE URINE NEGATIVE (NEGATIVE); NITRITE URINE NEGATIVE (NEGATIVE); OCCULT BLOOD URINE TRACE (NEGATIVE); PH URINE 6.5 (4.5-8.0); PROTEIN URINE NEGATIVE (NEGATIVE); SPECIFIC GRAVITY URINE 1.013 (1.005-1.030)
[2022-05-01 10:35] VITALS: BP 130/62
== END 2022-05-01 10:52 | disposition short-term general hospital (02) ==
LOC: ER 16:53
DX: N39.0 Urinary tract infection, site not specified (principal); R06.00 Dyspnea, unspecified; I11.0 Hypertensive heart disease with heart failure; I50.9 Heart failure, unspecified; I83.12 Varicose veins of left lower extremity with inflammation; I83.11 Varicose veins of right lower extremity with inflammation; F03.90 Unspecified dementia, unspecified severity, without behavioral disturbance, psychotic disturbance, mood disturbance, and anxiety; K21.9 Gastro-esophageal reflux disease without esophagitis; Z86.73 Personal history of transient ischemic attack (TIA), and cerebral infarction without residual deficits; Z20.822 Contact with and (suspected) exposure to COVID-19; Z86.718 Personal history of other venous thrombosis and embolism; Z79.01 Long term (current) use of anticoagulants
CPT/HCPCS: 36415; 71045; 80053; 81003; 83690; 83880; 84484; 85025; 85610; 87086; 87426; 93005; 93970; 94640; 94664; 96365; 96375; 99284; C9803; J0696; J1940

== ENCOUNTER 2022-06-06 02:35 | Inpatient (IN) | payer MEDICARE, MEDICAID ==
[~2022-06-06] VITALS: Ht 167.6 cm; Wt 96.6 kg
[2022-06-06] MEDS ORDERED: ASPIRIN 81MG TABLET PO ONE (04:30)
[2022-06-06] MEDS ORDERED: FUROSEMIDE 40MG/4ML VIAL IVP ONE (04:30)
[2022-06-06 04:35] LABS: HEMATOCRIT. 40.3 % (36.0-48.0); HEMOGLOBIN. 12.4 g/dL (12.0-16.0); MEAN CORPUSCULAR HEMOGLOBIN 24.6 pg (28.0-32.0); MEAN CORPUSCULAR VOLUME 79.9 fL (81.0-99.0); MEAN PLATELET VOLUME 7.7 fl (7.4-10.4); PLATELET 302 x1000/uL (130-400); RED BLOOD CELL COUNT 5.05 mill/uL (4.2-5.4); RED CELL DISTRIBUTION WIDTH 18.1 % (11.6-14.6)
[2022-06-06 04:44] LABS: CHLORIDE 102 mEq/L (98-107)
[2022-06-06 04:59] LABS: PLATELET ESTIMATE NORMAL
[2022-06-06] MEDS ORDERED: ONDANSETRON HCL 4MG/2ML INJ IV PRN (14:45)
[2022-06-06] MEDS ORDERED: CLONIDINE 0.1MG TABLET PO PRN (14:45)
[2022-06-06] MEDS ORDERED: ENOXAPARIN 40MG/0.4ML SYR SUBCUT SCH (14:45)
[2022-06-06] MEDS ORDERED: ACETAMINOPHEN 325MG TABLET PO PRN ×2 (14:45→18:15)
[2022-06-06 15:04] VITALS: BP 153/82
[2022-06-06 15:05] VITALS: BP 153/82
[2022-06-06] MEDS: FUROSEMIDE 40MG/4ML VIAL IVP SCH (16:22)
[2022-06-06] MEDS: METHYLPREDNISOLONE SOD SUCC 40 MG/ML VIAL IV SCH ×2 (16:22→22:33)
[2022-06-06] MEDS: CARVEDILOL 12.5MG TABLET PO SCH (16:33)
[2022-06-06] MEDS: APIXABAN 5 MG TABLET PO SCH (16:34)
[2022-06-06] MEDS: IPRATROPIUM/ALBUTEROL 0.5-3(2.5)MG/3ML NEB HHN SCH ×2 (16:52→20:29)
[2022-06-06] MEDS ORDERED: LEVOFLOXACIN 500MG PREMIX 100 ML IV SCH (17:00)
[2022-06-06 20:00] VITALS: BP 108/51
[2022-06-06] MEDS: LEVOFLOXACIN 500MG PREMIX 100 ML IV SCH (20:09)
[2022-06-06] MEDS: LEVETIRACETAM 250MG TABLET PO SCH (20:50)
[2022-06-06] MEDS ORDERED: TRAZODONE HCL 50MG TABLET PO PRN (21:00)
[2022-06-07] VITALS: BP 121/67
[2022-06-07] MEDS: IPRATROPIUM/ALBUTEROL 0.5-3(2.5)MG/3ML NEB HHN SCH ×5 (00:49→21:23)
[2022-06-07 01:22] LABS: CREATINE KINASE 179 IU/L (26-192); CREATINE KINASE MB FRACTION < 1.0 ng/mL (0.5-3.6)
[2022-06-07 02:09] LABS: CLARITY URINE CLEAR (CLEAR); COLOR URINE YELLOW (YELLOW); KETONES URINE NEGATIVE (NEGATIVE); LEUKOCYTE ESTERASE URINE NEGATIVE (NEGATIVE); NITRITE URINE NEGATIVE (NEGATIVE); OCCULT BLOOD URINE NEGATIVE (NEGATIVE); PH URINE 5.5 (4.5-8.0); PROTEIN URINE NEGATIVE (NEGATIVE); UROBILINOGEN URINE 0.2 E.U./dL (0.2-1.0)
[2022-06-07 04:00] VITALS: BP 120/53
[2022-06-07] MEDS: METHYLPREDNISOLONE SOD SUCC 40 MG/ML VIAL IV SCH ×3 (05:56→22:37)
[2022-06-07 06:34] LABS: CREATINE KINASE 103 IU/L (26-192); CREATINE KINASE MB FRACTION < 1.0 ng/mL (0.5-3.6)
[2022-06-07 08:00] VITALS: BP 132/66
[2022-06-07] MEDS: ATORVASTATIN CALCIUM 40MG TABLET PO SCH (09:44)
[2022-06-07] MEDS: CARVEDILOL 12.5MG TABLET PO SCH ×2 (09:44→17:48)
[2022-06-07] MEDS: APIXABAN 5 MG TABLET PO SCH ×2 (09:44→17:48)
[2022-06-07] MEDS: FAMOTIDINE 20MG TABLET PO SCH (09:44)
[2022-06-07] MEDS: FUROSEMIDE 40MG/4ML VIAL IVP SCH (09:44)
[2022-06-07] MEDS: DONEPEZIL HCL 5MG TABLET PO SCH (09:44)
[2022-06-07] MEDS: LEVETIRACETAM 250MG TABLET PO SCH ×2 (09:48→22:37)
[2022-06-07 12:00] VITALS: BP 111/46
[2022-06-07 16:00] VITALS: BP 125/52
[2022-06-07] MEDS ORDERED: ALBU18HF2 IH (16:41)
[2022-06-07] MEDS ORDERED: FURO40TA5 MT (16:41)
[2022-06-07] MEDS ORDERED: AMLO10TA80 MT (16:41)
[2022-06-07] MEDS ORDERED: LEVE750T10 MT (16:41)
[2022-06-07] MEDS ORDERED: POTA-10 MT (16:41)
[2022-06-07] MEDS: LEVOFLOXACIN 500MG PREMIX 100 ML IV SCH (19:50)
[2022-06-07 20:00] VITALS: BP 99/53
[2022-06-08] VITALS: BP 117/58
[2022-06-08] MEDS: IPRATROPIUM/ALBUTEROL 0.5-3(2.5)MG/3ML NEB HHN SCH ×4 (02:25→14:47)
[2022-06-08 04:00] VITALS: BP 127/68
[2022-06-08] MEDS: METHYLPREDNISOLONE SOD SUCC 40 MG/ML VIAL IV SCH ×2 (05:54→14:00)
[2022-06-08 06:01] VITALS: BP 127/68
[2022-06-08 08:00] VITALS: BP 125/57
[2022-06-08] MEDS: LEVETIRACETAM 250MG TABLET PO SCH (09:55)
[2022-06-08] MEDS: FAMOTIDINE 20MG TABLET PO SCH (09:55)
[2022-06-08] MEDS: APIXABAN 5 MG TABLET PO SCH ×2 (09:55→17:00)
[2022-06-08] MEDS: CARVEDILOL 12.5MG TABLET PO SCH ×2 (09:55→17:00)
[2022-06-08] MEDS: DONEPEZIL HCL 5MG TABLET PO SCH (09:55)
[2022-06-08] MEDS: FUROSEMIDE 40MG/4ML VIAL IVP SCH (09:55)
[2022-06-08] MEDS: ATORVASTATIN CALCIUM 40MG TABLET PO SCH (09:55)
[2022-06-08 12:00] VITALS: BP 114/57
[2022-06-08 16:00] VITALS: BP 124/59
== END 2022-06-08 17:40 | disposition home health service (06) | DRG 191 ==
LOC: ER 02:35 → 6WST 06:58 → ENRESERV 12:17
PROVIDERS: ADMIT Internal Medicine; ATTEND Internal Medicine
DX: J44.1 Chronic obstructive pulmonary disease with (acute) exacerbation (principal); I50.30 Unspecified diastolic (congestive) heart failure; I11.0 Hypertensive heart disease with heart failure; Z20.822 Contact with and (suspected) exposure to COVID-19; F03.90 Unspecified dementia, unspecified severity, without behavioral disturbance, psychotic disturbance, mood disturbance, and anxiety; I87.2 Venous insufficiency (chronic) (peripheral); K21.9 Gastro-esophageal reflux disease without esophagitis; G40.909 Epilepsy, unspecified, not intractable, without status epilepticus; Z86.718 Personal history of other venous thrombosis and embolism; Z79.01 Long term (current) use of anticoagulants; Z86.73 Personal history of transient ischemic attack (TIA), and cerebral infarction without residual deficits; Z79.899 Other long term (current) drug therapy; Z82.49 Family history of ischemic heart disease and other diseases of the circulatory system
CPT/HCPCS: 36415; 71045; 80053; 81003; 82550; 82553; 83880; 84484; 85025; 85379; 87426; 93005; 94640; 97161; 97162; 99285; C1893; C9803; J1940; J1956; J2920

== ENCOUNTER 2022-08-04 12:49 | Emergency (ER) | payer MEDICARE, MEDICAID ==
[~2022-08-04] VITALS: Ht 165.1 cm; Wt 93.0 kg
[~2022-08-04 12:49] MED LIST changes: +ALBU18HF2 IH; +AMLO10TA80 MT; +FURO40TA5 MT; -KEPP500 PO; +LEVE750T10 MT; -LEVO500T90 MT; +POTA-10 MT
[2022-08-04] MEDS ORDERED: ACETAMINOPHEN 325MG TABLET PO ONE (13:30)
[2022-08-04 14:20] LABS: BASOPHILS % 0.6 % (0.0-2.0); EOSINOPHILS % 3.3 % (0.0-5.0); HEMATOCRIT. 44.9 % (36.0-48.0); HEMOGLOBIN. 14.3 g/dL (12.0-16.0); LYMPHOCYTES % 27.5 % (20.0-50.0); MEAN CORPUSCULAR HEMOGLOBIN 26.5 pg (28.0-32.0); MONOCYTES % 14.3 % (2.0-8.0); NEUTROPHILS % 54.3 % (40.0-76.0); PLATELET 242 x1000/uL (130-400); RED BLOOD CELL COUNT 5.41 mill/uL (4.2-5.4); RED CELL DISTRIBUTION WIDTH 20.3 % (11.6-14.6)
[2022-08-04 14:27] LABS: CHLORIDE 107 mEq/L (98-107)
[2022-08-04 14:29] LABS: INR 1.1; PROTHROMBIN TIME 11.3 sec (9.6-11.0)
[2022-08-04] MEDS ORDERED: FUROSEMIDE 40MG/4ML VIAL IVP SCH (14:30)
[2022-08-04 14:36] LABS: ETHANOL BLOOD < 10 mg/dL
[2022-08-04 16:35] LABS: CLARITY URINE TURBID (CLEAR); COLOR URINE YELLOW (YELLOW); KETONES URINE NEGATIVE (NEGATIVE); LEUKOCYTE ESTERASE URINE 3+ (NEGATIVE); NITRITE URINE NEGATIVE (NEGATIVE); OCCULT BLOOD URINE 1+ (NEGATIVE); PROTEIN URINE NEGATIVE (NEGATIVE); SPECIFIC GRAVITY URINE 1.008 (1.005-1.030); UROBILINOGEN URINE 0.2 E.U./dL (0.2-1.0)
[2022-08-04 16:58] LABS: *AMPHETAMINES SCREEN URINE NEGATIVE (NEGATIVE); *BARBITURATES SCREEN URINE NEGATIVE (NEGATIVE); *BENZODIAZEPINES SCREEN URINE NEGATIVE (NEGATIVE); *COCAINE SCREEN URINE NEGATIVE (NEGATIVE); CANNABINOID URINE SCREEN NEGATIVE (NEGATIVE); METHADONE URINE SCREEN NEGATIVE (NEGATIVE); OPIATES URINE SCREEN NEGATIVE (NEGATIVE); PHENCYCLIDINE URINE SCREEN NEGATIVE (NEGATIVE)
[2022-08-04] MEDS ORDERED: SULF1TAB48 MT (17:44)
[2022-08-04] MEDS ORDERED: SULFAMETHOXAZOLE/TRIMETHOPRIM 800/160MG TABLET PO NR (18:00)
[2022-08-04 18:15] VITALS: BP 129/70
== END 2022-08-04 18:42 | disposition home or self-care (01) ==
LOC: ER 12:59 → CANBEDREQ 20:13
DX: R60.0 Localized edema (principal); I11.0 Hypertensive heart disease with heart failure; I50.9 Heart failure, unspecified; F03.90 Unspecified dementia, unspecified severity, without behavioral disturbance, psychotic disturbance, mood disturbance, and anxiety; K21.9 Gastro-esophageal reflux disease without esophagitis; R56.9 Unspecified convulsions; Z79.01 Long term (current) use of anticoagulants; Z86.73 Personal history of transient ischemic attack (TIA), and cerebral infarction without residual deficits; Z86.718 Personal history of other venous thrombosis and embolism; Z87.440 Personal history of urinary (tract) infections
CPT/HCPCS: 36415; 71045; 80053; 80305; 80320; 81003; 83605; 83880; 84145; 84484; 85025; 85610; 87040; 87077; 87086; 87186; 93005; 93970; 96374; 99284; J1940; A4315; G0480

== ENCOUNTER 2022-11-23 17:37 | Inpatient (IN) | payer MEDICARE, MEDICAID ==
[~2022-11-23] VITALS: Ht 162.6 cm; Wt 82.7 kg
[~2022-11-23 17:37] MED LIST changes: -POTA-10 MT; +POTA-203 MT; +SULF1TAB48 MT
[2022-11-23 19:57] LABS: HEMATOCRIT. 41.1 % (36.0-48.0); HEMOGLOBIN. 13.3 g/dL (12.0-16.0); MEAN CORPUSCULAR HEMOGLOBIN 28.5 pg (28.0-32.0); MEAN CORPUSCULAR VOLUME 88.2 fL (81.0-99.0); MEAN PLATELET VOLUME 8.1 fl (7.4-10.4); PLATELET 312 x1000/uL (130-400); RED BLOOD CELL COUNT 4.66 mill/uL (4.2-5.4); RED CELL DISTRIBUTION WIDTH 14.7 % (11.6-14.6)
[2022-11-23 20:01] LABS: CHLORIDE 103 mEq/L (98-107)
[2022-11-23 20:11] LABS: CREATINE KINASE 70 IU/L (26-192)
[2022-11-23 20:21] LABS: INR 1.2
[2022-11-23 21:03] LABS: PLATELET ESTIMATE NORMAL
[2022-11-23 21:26] LABS: CLARITY URINE CLEAR (CLEAR); COLOR URINE DARK YELLOW (YELLOW); KETONES URINE TRACE (NEGATIVE); LEUKOCYTE ESTERASE URINE NEGATIVE (NEGATIVE); NITRITE URINE NEGATIVE (NEGATIVE); OCCULT BLOOD URINE TRACE (NEGATIVE); PH URINE 5.5 (4.5-8.0); PROTEIN URINE 1+ (NEGATIVE)
[2022-11-23] MEDS: FUROSEMIDE 100MG/10ML VIAL IVP NR ×2 (21:31→22:34)
[2022-11-24] MEDS ORDERED: ONDANSETRON HCL 4MG/2ML INJ IV PRN (14:00)
[2022-11-24] MEDS: CARVEDILOL 12.5MG TABLET PO SCH ×2 (14:00→17:00)
[2022-11-24] MEDS ORDERED: PANTOPRAZOLE SODIUM 40 MG/VIAL IV SCH (14:00)
[2022-11-24] MEDS: ATORVASTATIN CALCIUM 40MG TABLET PO SCH (14:00)
[2022-11-24] MEDS ORDERED: PIPERACILLIN/TAZ 3.375G PREMIX 50 ML IV SCH ×2 (15:00→23:00)
[2022-11-24] MEDS ORDERED: VANCOMYCIN 1500MG in DEXTROSE 5% WATER 250ML IV SCH (15:30)
[2022-11-24 15:51] LABS: BG BASE EXCESS 3.5 mmol/L (-2.0-2.0); BG CARBOXYHEMOGLOBIN 1.2 % (0.5-1.5); BG DEOXYHEMOGLOBIN 12.5 % (0.0-5.0); BG HCO3 ACT 33.8 mmol/L (22.0-26.0); BG METHEMOGLOBIN 0.5 % (0.0-1.5); BG OXYGEN SATURATION 87.3 % (92.0-98.5); BG OXYHEMOGLOBIN 85.8 % (94.0-97.0); BG PCO2 81.6 mmHg (35.0-45.0); BG PH 7.235 (7.350-7.450); BG PO2 59.3 mmHg (75.0-100.0); BG SAMPLE SITE RIGHT BRACHIAL; BG TOTAL HEMOGLOBIN 14.2 g/dL (12.0-18.0); BG VENT MODE NASAL CANNULA
[2022-11-24] MEDS: APIXABAN 5 MG TABLET PO SCH (17:00)
[2022-11-24 19:13] LABS: BG BASE EXCESS 12.1 mmol/L (-2.0-2.0); BG CARBOXYHEMOGLOBIN 0.8 % (0.5-1.5); BG DEOXYHEMOGLOBIN 4.2 % (0.0-5.0); BG FRACTION INSPIRED OXYGEN 32; BG HCO3 ACT 46.1 mmol/L (22.0-26.0); BG METHEMOGLOBIN 0.2 % (0.0-1.5); BG OXYGEN SATURATION 95.8 % (92.0-98.5); BG OXYHEMOGLOBIN 94.8 % (94.0-97.0); BG PCO2 124.5 mmHg (35.0-45.0); BG PH 7.186 (7.350-7.450); BG PO2 91.7 mmHg (75.0-100.0); BG SAMPLE SITE LEFT BRACHIAL; BG TOTAL HEMOGLOBIN 14.5 g/dL (12.0-18.0); BG VENT MODE NASAL CANNULA
[2022-11-24 20:00] VITALS: BP 128/64
[2022-11-24] MEDS: IPRATROPIUM/ALBUTEROL 0.5-3(2.5)MG/3ML NEB HHN SCH (20:21)
[2022-11-24] MEDS: METHYLPREDNISOLONE SOD SUCC 40 MG/ML VIAL IV SCH (20:50)
[2022-11-24 21:34] VITALS: BP 118/65
[2022-11-25] VITALS (11 sets, daily range): BP systolic 107–146; BP diastolic 49–74
[2022-11-25] MEDS: IPRATROPIUM/ALBUTEROL 0.5-3(2.5)MG/3ML NEB HHN SCH ×6 (00:02→21:43)
[2022-11-25] MEDS: PIPERACILLIN IV SCH ×4 (01:12→21:17)
[2022-11-25] MEDS: WATER IV SCH ×4 (01:12→21:17)
[2022-11-25] MEDS: DEXTROSE 5% IV SCH ×4 (01:12→21:17)
[2022-11-25] MEDS: DIVALPROEX SODIUM 125MG SPRINKLE CAPSULE PO SCH ×2 (01:12→22:22)
[2022-11-25] MEDS: TAZOBACTAM IV SCH ×4 (01:12→21:17)
[2022-11-25] MEDS: LEVETIRACETAM 250MG TABLET PO SCH ×3 (01:12→21:15)
[2022-11-25] MEDS: METHYLPREDNISOLONE SOD SUCC 40 MG/ML VIAL IV SCH ×3 (05:08→21:16)
[2022-11-25 06:33] LABS: HEMATOCRIT. 40.9 % (36.0-48.0); HEMOGLOBIN. 12.9 g/dL (12.0-16.0); MEAN CORPUSCULAR HEMOGLOBIN 27.9 pg (28.0-32.0); MEAN CORPUSCULAR VOLUME 88.4 fL (81.0-99.0); MEAN PLATELET VOLUME 8.1 fl (7.4-10.4); PLATELET 271 x1000/uL (130-400); RED BLOOD CELL COUNT 4.63 mill/uL (4.2-5.4); RED CELL DISTRIBUTION WIDTH 15.2 % (11.6-14.6)
[2022-11-25 07:32] LABS: CHLORIDE 101 mEq/L (98-107)
[2022-11-25] MEDS ORDERED: FAMOTIDINE 20MG TABLET PO SCH (09:00)
[2022-11-25] MEDS: CARVEDILOL 12.5MG TABLET PO SCH ×2 (09:00→17:38)
[2022-11-25] MEDS ORDERED: LIDOCAINE HCL/PF 1% 10 MG/ML 5ML VIAL ONE (09:58)
[2022-11-25] MEDS: APIXABAN 5 MG TABLET PO SCH ×2 (10:03→17:40)
[2022-11-25] MEDS: FUROSEMIDE 40MG/4ML VIAL IVP SCH (10:04)
[2022-11-25] MEDS: DONEPEZIL HCL 5MG TABLET PO SCH (10:04)
[2022-11-25] MEDS: ATORVASTATIN CALCIUM 40MG TABLET PO SCH (10:04)
[2022-11-25] MEDS: AMLODIPINE 10MG TABLET PO SCH (10:05)
[2022-11-25 10:21] LABS: PLATELET ESTIMATE NORMAL
[2022-11-25] MEDS ORDERED: IOHEXOL-350 100 ML BOTTLE ONE (13:03)
[2022-11-25 14:38] LABS: BG BASE EXCESS 6.3 mmol/L (-2.0-2.0); BG CARBOXYHEMOGLOBIN 0.9 % (0.5-1.5); BG DEOXYHEMOGLOBIN 4.8 % (0.0-5.0); BG HCO3 ACT 35.6 mmol/L (22.0-26.0); BG METHEMOGLOBIN 0.3 % (0.0-1.5); BG OXYGEN SATURATION 95.1 % (92.0-98.5); BG PCO2 75.4 mmHg (35.0-45.0); BG PH 7.292 (7.350-7.450); BG PO2 81.8 mmHg (75.0-100.0); BG SAMPLE SITE RIGHT BRACHIAL; BG TOTAL HEMOGLOBIN 14.1 g/dL (12.0-18.0); BG VENT MODE MASK - BIPAP
[2022-11-25] MEDS: VANCOMYCIN 1G PREMIX 200 ML IV SCH (15:31)
[2022-11-25] MEDS: PANTOT AC/MIN OIL/PET HY-PHL OINT (AQUAPHOR) TOP SCH (21:16)
[2022-11-26] VITALS (12 sets, daily range): BP systolic 110–141; BP diastolic 45–66
[2022-11-26] MEDS: IPRATROPIUM/ALBUTEROL 0.5-3(2.5)MG/3ML NEB HHN SCH ×6 (00:48→21:45)
[2022-11-26] MEDS: METHYLPREDNISOLONE SOD SUCC 40 MG/ML VIAL IV SCH ×3 (04:12→20:07)
[2022-11-26] MEDS: DEXTROSE 5% IV SCH (05:32)
[2022-11-26] MEDS: WATER IV SCH (05:32)
[2022-11-26] MEDS: TAZOBACTAM IV SCH (05:32)
[2022-11-26] MEDS: PIPERACILLIN IV SCH (05:32)
[2022-11-26 06:11] LABS: HEMOGLOBIN. 13.9 g/dL (12.0-16.0); MEAN CORPUSCULAR HEMOGLOBIN 28.6 pg (28.0-32.0); MEAN CORPUSCULAR VOLUME 88.1 fL (81.0-99.0); MEAN PLATELET VOLUME 8.5 fl (7.4-10.4); PLATELET 304 x1000/uL (130-400); RED BLOOD CELL COUNT 4.88 mill/uL (4.2-5.4); RED CELL DISTRIBUTION WIDTH 15.3 % (11.6-14.6)
[2022-11-26 07:02] LABS: CHLORIDE 101 mEq/L (98-107)
[2022-11-26] MEDS: CARVEDILOL 12.5MG TABLET PO SCH ×2 (09:00→17:00)
[2022-11-26] MEDS: APIXABAN 5 MG TABLET PO SCH (09:11)
[2022-11-26] MEDS: LEVETIRACETAM 250MG TABLET PO SCH ×2 (09:11→20:06)
[2022-11-26] MEDS: AMLODIPINE 10MG TABLET PO SCH (09:11)
[2022-11-26] MEDS: ATORVASTATIN CALCIUM 40MG TABLET PO SCH (09:11)
[2022-11-26] MEDS: FUROSEMIDE 40MG/4ML VIAL IVP SCH (09:13)
[2022-11-26] MEDS: PANTOT AC/MIN OIL/PET HY-PHL OINT (AQUAPHOR) TOP SCH (09:15)
[2022-11-26] MEDS: DONEPEZIL HCL 5MG TABLET PO SCH (09:16)
[2022-11-26 09:51] LABS: BG BASE EXCESS 8.4 mmol/L (-2.0-2.0); BG CARBOXYHEMOGLOBIN 1.1 % (0.5-1.5); BG DEOXYHEMOGLOBIN 2.1 % (0.0-5.0); BG FRACTION INSPIRED OXYGEN 100; BG HCO3 ACT 38.2 mmol/L (22.0-26.0); BG METHEMOGLOBIN 0.3 % (0.0-1.5); BG OXYGEN SATURATION 97.9 % (92.0-98.5); BG OXYHEMOGLOBIN 96.5 % (94.0-97.0); BG PCO2 79.6 mmHg (35.0-45.0); BG PH 7.299 (7.350-7.450); BG PO2 104.9 mmHg (75.0-100.0); BG SAMPLE SITE RIGHT BRACHIAL; BG TOTAL HEMOGLOBIN 14.3 g/dL (12.0-18.0); BG VENT MODE MASK - NRB
[2022-11-26 10:54] LABS: PLATELET ESTIMATE NORMAL
[2022-11-26] MEDS: PIPERACILLIN/TAZOBACTAM 3.375 G in DEXTROSE 5% WATER 50 ML IV SCH ×2 (14:18→21:54)
[2022-11-26] MEDS: VANCOMYCIN 1G PREMIX 200 ML IV SCH (15:41)
[2022-11-26] MEDS: ENOXAPARIN 30MG/0.3ML SYR SUBCUT SCH (20:06)
[2022-11-26] MEDS: DIVALPROEX SODIUM 125MG SPRINKLE CAPSULE PO SCH (20:06)
[2022-11-26] MEDS ORDERED: FURO40TA5 PO (20:06)
[2022-11-26] MEDS: FAMOTIDINE 20MG/2ML VIAL IV SCH (20:06)
[2022-11-26] MEDS ORDERED: POTA10CA42 PO (20:17)
[2022-11-27] VITALS (12 sets, daily range): BP systolic 104–138; BP diastolic 48–78
[2022-11-27] MEDS: IPRATROPIUM/ALBUTEROL 0.5-3(2.5)MG/3ML NEB HHN SCH ×7 (01:26→23:54)
[2022-11-27] MEDS: METHYLPREDNISOLONE SOD SUCC 40 MG/ML VIAL IV SCH ×3 (03:26→20:06)
[2022-11-27] MEDS: PIPERACILLIN/TAZOBACTAM 3.375 G in DEXTROSE 5% WATER 50 ML IV SCH ×3 (05:10→22:04)
[2022-11-27 05:55] LABS: HEMATOCRIT. 39.5 % (36.0-48.0); HEMOGLOBIN. 12.7 g/dL (12.0-16.0); MEAN CORPUSCULAR HEMOGLOBIN 28.4 pg (28.0-32.0); MEAN CORPUSCULAR VOLUME 88.5 fL (81.0-99.0); MEAN PLATELET VOLUME 8.4 fl (7.4-10.4); PLATELET 280 x1000/uL (130-400); RED BLOOD CELL COUNT 4.46 mill/uL (4.2-5.4)
[2022-11-27 06:05] LABS: CHLORIDE 102 mEq/L (98-107)
[2022-11-27] MEDS: DONEPEZIL HCL 5MG TABLET PO SCH (10:58)
[2022-11-27] MEDS: FUROSEMIDE 40MG/4ML VIAL IVP SCH (10:58)
[2022-11-27] MEDS: ATORVASTATIN CALCIUM 40MG TABLET PO SCH (10:58)
[2022-11-27] MEDS: AMLODIPINE 5MG TABLET PO SCH ×2 (11:00→17:01)
[2022-11-27] MEDS: CARVEDILOL 12.5MG TABLET PO SCH ×2 (11:01→17:01)
[2022-11-27] MEDS: ENOXAPARIN 30MG/0.3ML SYR SUBCUT SCH ×2 (11:01→21:00)
[2022-11-27] MEDS: FAMOTIDINE 20MG/2ML VIAL IV SCH ×2 (11:03→21:53)
[2022-11-27] MEDS: LEVETIRACETAM 250MG TABLET PO SCH ×2 (11:03→21:55)
[2022-11-27] MEDS: PANTOT AC/MIN OIL/PET HY-PHL OINT (AQUAPHOR) TOP SCH (11:05)
[2022-11-27] MEDS ORDERED: VANCOMYCIN 1.25GM PMX (XELLIA) 250 ML IV SCH ×2 (12:00→19:43)
[2022-11-27 17:36] LABS: PLATELET ESTIMATE NORMAL
[2022-11-27] MEDS: DIVALPROEX SODIUM 125MG SPRINKLE CAPSULE PO SCH (21:55)
[2022-11-27] MEDS: ACETAMINOPHEN 325MG TABLET PO PRN (23:52)
[2022-11-28] VITALS (12 sets, daily range): BP systolic 116–142; BP diastolic 47–71
[2022-11-28] MEDS: IPRATROPIUM/ALBUTEROL 0.5-3(2.5)MG/3ML NEB HHN SCH ×3 (03:40→12:30)
[2022-11-28] MEDS: METHYLPREDNISOLONE SOD SUCC 40 MG/ML VIAL IV SCH ×3 (04:19→20:29)
[2022-11-28] MEDS: PIPERACILLIN/TAZOBACTAM 3.375 G in DEXTROSE 5% WATER 50 ML IV SCH ×3 (05:28→22:42)
[2022-11-28] MEDS: VANCOMYCIN 1.25GM PMX (XELLIA) 250 ML IV SCH (05:29)
[2022-11-28] MEDS: CARVEDILOL 12.5MG TABLET PO SCH ×2 (09:00→16:41)
[2022-11-28] MEDS: AMLODIPINE 5MG TABLET PO SCH ×2 (09:00→16:41)
[2022-11-28] MEDS: ENOXAPARIN 30MG/0.3ML SYR SUBCUT SCH ×2 (09:00→20:30)
[2022-11-28] MEDS: FAMOTIDINE 20MG TABLET PO SCH ×2 (09:11→20:28)
[2022-11-28] MEDS: FUROSEMIDE 40MG/4ML VIAL IVP SCH (09:11)
[2022-11-28] MEDS: ATORVASTATIN CALCIUM 40MG TABLET PO SCH (09:12)
[2022-11-28] MEDS: PANTOT AC/MIN OIL/PET HY-PHL OINT (AQUAPHOR) TOP SCH (09:13)
[2022-11-28] MEDS: LEVETIRACETAM 250MG TABLET PO SCH ×2 (09:20→20:29)
[2022-11-28] MEDS: DONEPEZIL HCL 5MG TABLET PO SCH (09:20)
[2022-11-28] MEDS ORDERED: ALBUTEROL (0.083%) 2.5MG/3ML NEB ONE (12:12)
[2022-11-28] MEDS ORDERED: IPRATROPIUM BROMIDE (0.02%) 0.5MG/2.5ML NEB ONE (12:12)
[2022-11-28] MEDS: ALBUTEROL (0.083%) 2.5MG/3ML NEB HHN SCH (15:56)
[2022-11-28] MEDS: IPRATROPIUM BROMIDE (0.02%) 0.5MG/2.5ML NEB HHN SCH ×2 (16:02→21:11)
[2022-11-28 19:26] LABS: BG BASE EXCESS 20.8 mmol/L (-2.0-2.0); BG CARBOXYHEMOGLOBIN 0.2 % (0.5-1.5); BG DEOXYHEMOGLOBIN 5.7 % (0.0-5.0); BG FRACTION INSPIRED OXYGEN 36; BG OXYGEN SATURATION 94.3 % (92.0-98.5); BG OXYHEMOGLOBIN 94.1 % (94.0-97.0); BG PCO2 63.9 mmHg (35.0-45.0); BG PH 7.494 (7.350-7.450); BG PO2 70.5 mmHg (75.0-100.0); BG SAMPLE SITE RIGHT BRACHIAL; BG TOTAL HEMOGLOBIN 14.1 g/dL (12.0-18.0); BG VENT MODE NASAL CANNULA
[2022-11-28] MEDS: DIVALPROEX SODIUM 125MG SPRINKLE CAPSULE PO SCH (20:28)
[2022-11-29] VITALS (11 sets, daily range): BP systolic 77–144; BP diastolic 50–66
[2022-11-29] MEDS: VANCOMYCIN 1.25GM PMX (XELLIA) 250 ML IV SCH ×2 (00:27→18:00)
[2022-11-29] MEDS: METHYLPREDNISOLONE SOD SUCC 40 MG/ML VIAL IV SCH ×3 (03:37→20:48)
[2022-11-29] MEDS: ALBUTEROL (0.083%) 2.5MG/3ML NEB HHN SCH ×5 (04:20→23:27)
[2022-11-29] MEDS: IPRATROPIUM BROMIDE (0.02%) 0.5MG/2.5ML NEB HHN SCH ×6 (04:52→23:27)
[2022-11-29] MEDS: PIPERACILLIN/TAZOBACTAM 3.375 G in DEXTROSE 5% WATER 50 ML IV SCH ×3 (05:12→21:39)
[2022-11-29 06:26] LABS: CHLORIDE 98 mEq/L (98-107)
[2022-11-29 06:33] LABS: HEMATOCRIT. 40.9 % (36.0-48.0); HEMOGLOBIN. 13.4 g/dL (12.0-16.0); MEAN CORPUSCULAR HEMOGLOBIN 28.5 pg (28.0-32.0); MEAN PLATELET VOLUME 8.2 fl (7.4-10.4); PLATELET 263 x1000/uL (130-400)
[2022-11-29 06:35] LABS: INR 1.1; PROTHROMBIN TIME 11.9 sec (9.6-11.0)
[2022-11-29] MEDS ORDERED: POTASSIUM CHLORIDE INJ 40 MEQ in DEXT 5% WATER 500 ML IV ONE (07:45)
[2022-11-29] MEDS: KCL 20MEQ/100ML X 2 FOR TOTAL KCL 40MEQ/200ML IV SCH ×2 (08:17→10:40)
[2022-11-29] MEDS: ENOXAPARIN 30MG/0.3ML SYR SUBCUT SCH ×2 (09:00→20:54)
[2022-11-29] MEDS: CARVEDILOL 12.5MG TABLET PO SCH ×2 (09:00→17:00)
[2022-11-29] MEDS: FAMOTIDINE 20MG TABLET PO SCH ×2 (09:00→21:38)
[2022-11-29] MEDS: AMLODIPINE 5MG TABLET PO SCH ×2 (09:00→17:00)
[2022-11-29] MEDS: LEVETIRACETAM 250MG TABLET PO SCH ×2 (09:00→21:39)
[2022-11-29] MEDS: ATORVASTATIN CALCIUM 40MG TABLET PO SCH (09:00)
[2022-11-29] MEDS: DONEPEZIL HCL 5MG TABLET PO SCH (09:00)
[2022-11-29] MEDS: PANTOT AC/MIN OIL/PET HY-PHL OINT (AQUAPHOR) TOP SCH (09:00)
[2022-11-29 09:06] LABS: BG CARBOXYHEMOGLOBIN 0.2 % (0.5-1.5); BG DEOXYHEMOGLOBIN 3.3 % (0.0-5.0); BG FRACTION INSPIRED OXYGEN 36; BG HCO3 ACT 49.3 mmol/L (22.0-26.0); BG METHEMOGLOBIN 0.3 % (0.0-1.5); BG OXYGEN SATURATION 96.7 % (92.0-98.5); BG OXYHEMOGLOBIN 96.2 % (94.0-97.0); BG PCO2 72.6 mmHg (35.0-45.0); BG PO2 85.2 mmHg (75.0-100.0); BG SAMPLE SITE LEFT BRACHIAL; BG TOTAL HEMOGLOBIN 13.5 g/dL (12.0-18.0); BG VENT MODE NASAL CANNULA
[2022-11-29] MEDS: DEXT 5%/0.45% NACL 1000ML 1,000 ML IV SCH (11:05)
[2022-11-29] MEDS ORDERED: POLYMYXIN B SULFATE 500000 UNITS/VIAL ONE (14:05)
[2022-11-29] MEDS ORDERED: LIDOCAINE HCL/EPINEPHRINE 1%-EPI 1:100,000 30 ML VIAL INFIL ONE (14:06)
[2022-11-29] MEDS ORDERED: VANCOMYCIN HCL 1 GM/VIAL ONE (14:06)
[2022-11-29] MEDS ORDERED: ALBUTEROL 6.7GM HFA INHALER ONE (15:10)
[2022-11-29] MEDS ORDERED: FENTANYL CITRATE/PF 50MCG/ML 2ML VIAL ONE ×2 (15:14→17:48)
[2022-11-29] MEDS ORDERED: DEXAMETHASONE 4MG/ML 1ML VIAL ONE (15:14)
[2022-11-29] MEDS ORDERED: ONDANSETRON HCL 4MG/2ML INJ ONE (15:14)
[2022-11-29] MEDS ORDERED: ETOMIDATE 2MG/ML 10ML VIAL IV ONE (15:14)
[2022-11-29] MEDS ORDERED: MIDAZOLAM HCL 2 MG/2 ML VIAL ONE (15:15)
[2022-11-29] MEDS ORDERED: PROPOFOL 200MG/20ML VIAL IV ONE (15:18)
[2022-11-29 16:10] LABS: PLATELET ESTIMATE NORMAL
[2022-11-29] MEDS ORDERED: HYDROMORPHONE HCL/PF 2MG/ML CPJ IV PRN (16:15)
[2022-11-29] MEDS ORDERED: LABETALOL 5MG/ML SYR 20 MG/4 ML SYRINGE IV PRN (16:15)
[2022-11-29] MEDS ORDERED: ONDANSETRON HCL 4MG/2ML INJ IV PRN (16:15)
[2022-11-29] MEDS ORDERED: MEPERIDINE HCL/PF 25MG/ML CPJ IV PRN (16:15)
[2022-11-29] MEDS ORDERED: SODIUM CHLORIDE 0.9% 500 ML IV ONE (20:41)
[2022-11-29] MEDS: DIVALPROEX SODIUM 125MG SPRINKLE CAPSULE PO SCH (20:48)
[2022-11-30] VITALS (11 sets, daily range): BP systolic 79–120; BP diastolic 40–89
[2022-11-30 00:19] LABS: HEMATOCRIT. 35.6 % (36.0-48.0); HEMOGLOBIN. 11.4 g/dL (12.0-16.0); MEAN CORPUSCULAR HEMOGLOBIN 28.7 pg (28.0-32.0); MEAN CORPUSCULAR VOLUME 89.6 fL (81.0-99.0); MEAN PLATELET VOLUME 8.9 fl (7.4-10.4); PLATELET 275 x1000/uL (130-400); RED BLOOD CELL COUNT 3.98 mill/uL (4.2-5.4); RED CELL DISTRIBUTION WIDTH 14.6 % (11.6-14.6)
[2022-11-30 00:22] LABS: CHLORIDE 104 mEq/L (98-107)
[2022-11-30] MEDS: METHYLPREDNISOLONE SOD SUCC 40 MG/ML VIAL IV SCH ×3 (03:02→20:12)
[2022-11-30] MEDS: ALBUTEROL (0.083%) 2.5MG/3ML NEB HHN SCH ×5 (04:20→21:50)
[2022-11-30] MEDS: IPRATROPIUM BROMIDE (0.02%) 0.5MG/2.5ML NEB HHN SCH ×5 (04:20→21:50)
[2022-11-30 05:41] LABS: PLATELET ESTIMATE NORMAL
[2022-11-30 06:20] LABS: HEMATOCRIT. 30.8 % (36.0-48.0); HEMOGLOBIN. 10.1 g/dL (12.0-16.0); MEAN CORPUSCULAR HEMOGLOBIN 29.1 pg (28.0-32.0); MEAN CORPUSCULAR VOLUME 88.8 fL (81.0-99.0); MEAN PLATELET VOLUME 8.7 fl (7.4-10.4); PLATELET 252 x1000/uL (130-400); RED BLOOD CELL COUNT 3.47 mill/uL (4.2-5.4); RED CELL DISTRIBUTION WIDTH 14.6 % (11.6-14.6)
[2022-11-30 06:22] LABS: CHLORIDE 106 mEq/L (98-107)
[2022-11-30] MEDS: AMLODIPINE 5MG TABLET PO SCH ×2 (08:06→17:00)
[2022-11-30] MEDS: CARVEDILOL 12.5MG TABLET PO SCH ×2 (08:06→17:00)
[2022-11-30] MEDS: ATORVASTATIN CALCIUM 40MG TABLET PO SCH (08:11)
[2022-11-30] MEDS: FAMOTIDINE 20MG TABLET PO SCH ×2 (08:11→20:13)
[2022-11-30] MEDS: LEVETIRACETAM 250MG TABLET PO SCH ×2 (08:11→20:15)
[2022-11-30] MEDS: DONEPEZIL HCL 5MG TABLET PO SCH (08:16)
[2022-11-30] MEDS: PANTOT AC/MIN OIL/PET HY-PHL OINT (AQUAPHOR) TOP SCH (08:21)
[2022-11-30] MEDS: ENOXAPARIN 30MG/0.3ML SYR SUBCUT SCH ×2 (08:26→21:00)
[2022-11-30] MEDS ORDERED: NALOXONE HCL 0.4MG/ML VIAL IV PRN (10:45)
[2022-11-30] MEDS: VANCOMYCIN 1.25GM PMX (XELLIA) 250 ML IV SCH (11:22)
[2022-11-30] MEDS: DIVALPROEX SODIUM 125MG SPRINKLE CAPSULE PO SCH (20:12)
[2022-11-30] MEDS: DEXT 5%/0.45% NACL 1000ML 1,000 ML IV SCH (20:12)
[2022-12-01] VITALS (8 sets, daily range): BP systolic 103–118; BP diastolic 44–65
[2022-12-01] MEDS: IPRATROPIUM BROMIDE (0.02%) 0.5MG/2.5ML NEB HHN SCH ×6 (01:05→20:22)
[2022-12-01] MEDS: ALBUTEROL (0.083%) 2.5MG/3ML NEB HHN SCH ×6 (01:05→20:22)
[2022-12-01] MEDS: ACETAMINOPHEN 325MG TABLET PO PRN (03:26)
[2022-12-01] MEDS: METHYLPREDNISOLONE SOD SUCC 40 MG/ML VIAL IV SCH ×3 (03:26→20:31)
[2022-12-01 04:13] LABS: HEMATOCRIT. 25.4 % (36.0-48.0); HEMOGLOBIN. 8.2 g/dL (12.0-16.0); MEAN CORPUSCULAR HEMOGLOBIN 28.5 pg (28.0-32.0); MEAN CORPUSCULAR VOLUME 87.8 fL (81.0-99.0); MEAN PLATELET VOLUME 8.3 fl (7.4-10.4); PLATELET 249 x1000/uL (130-400); RED BLOOD CELL COUNT 2.89 mill/uL (4.2-5.4); RED CELL DISTRIBUTION WIDTH 14.7 % (11.6-14.6)
[2022-12-01 04:21] LABS: CHLORIDE 104 mEq/L (98-107)
[2022-12-01] MEDS: VANCOMYCIN 1.25GM PMX (XELLIA) 250 ML IV SCH (06:10)
[2022-12-01] MEDS: AMLODIPINE 5MG TABLET PO SCH ×2 (09:00→17:00)
[2022-12-01] MEDS: CARVEDILOL 12.5MG TABLET PO SCH ×2 (09:00→17:00)
[2022-12-01] MEDS: PANTOT AC/MIN OIL/PET HY-PHL OINT (AQUAPHOR) TOP SCH (09:00)
[2022-12-01] MEDS: ATORVASTATIN CALCIUM 40MG TABLET PO SCH (09:10)
[2022-12-01] MEDS: LEVETIRACETAM 250MG TABLET PO SCH ×2 (09:10→20:33)
[2022-12-01] MEDS: DONEPEZIL HCL 5MG TABLET PO SCH (09:10)
[2022-12-01] MEDS: PANTOPRAZOLE SODIUM 40 MG/VIAL IV SCH (09:17)
[2022-12-01] MEDS: DEXT 5%/0.45% NACL 1000ML 1,000 ML IV SCH (11:00)
[2022-12-01 13:09] LABS: PLATELET ESTIMATE NORMAL
[2022-12-01] MEDS ORDERED: [UNRECOGNIZED DRUG - REMARK] XX SCH (15:00)
[2022-12-01 15:35] LABS: PLATELET ESTIMATE NORMAL
[2022-12-01] MEDS: DAPTOMYCIN 800 MG in SODIUM CHLORIDE 0.9% 50 ML IV SCH (18:16)
[2022-12-01] MEDS: DIVALPROEX SODIUM 125MG SPRINKLE CAPSULE PO SCH (20:31)
[2022-12-01] MEDS: HYDROCODONE/ACETAMINOPHEN 10/325MG TABLET PO PRN (21:34)
[2022-12-02] VITALS (10 sets, daily range): BP systolic 98–135; BP diastolic 43–119
[2022-12-02] MEDS: ALBUTEROL (0.083%) 2.5MG/3ML NEB HHN SCH ×7 (00:19→23:55)
[2022-12-02] MEDS: IPRATROPIUM BROMIDE (0.02%) 0.5MG/2.5ML NEB HHN SCH ×7 (00:19→23:54)
[2022-12-02] MEDS: METHYLPREDNISOLONE SOD SUCC 40 MG/ML VIAL IV SCH ×3 (04:40→21:02)
[2022-12-02 07:56] LABS: MEAN CORPUSCULAR VOLUME 87.4 fL (81.0-99.0); MEAN PLATELET VOLUME 8.5 fl (7.4-10.4); PLATELET 211 x1000/uL (130-400); RED BLOOD CELL COUNT 2.13 mill/uL (4.2-5.4); RED CELL DISTRIBUTION WIDTH 14.7 % (11.6-14.6)
[2022-12-02 08:17] LABS: CHLORIDE 103 mEq/L (98-107)
[2022-12-02 08:29] LABS: CREATINE KINASE 187 IU/L (26-192)
[2022-12-02] MEDS: CARVEDILOL 12.5MG TABLET PO SCH ×2 (09:00→18:28)
[2022-12-02] MEDS: PANTOT AC/MIN OIL/PET HY-PHL OINT (AQUAPHOR) TOP SCH (09:00)
[2022-12-02] MEDS: AMLODIPINE 5MG TABLET PO SCH ×2 (09:00→18:29)
[2022-12-02 09:11] LABS: HEMATOCRIT. 18.6 % (36.0-48.0); HEMOGLOBIN. 6.2 g/dL (12.0-16.0)
[2022-12-02] MEDS: ATORVASTATIN CALCIUM 40MG TABLET PO SCH (09:18)
[2022-12-02] MEDS: PANTOPRAZOLE SODIUM 40 MG/VIAL IV SCH (09:18)
[2022-12-02] MEDS: LEVETIRACETAM 250MG TABLET PO SCH ×2 (09:19→21:02)
[2022-12-02] MEDS: DONEPEZIL HCL 5MG TABLET PO SCH (09:19)
[2022-12-02] MEDS ORDERED: FUROSEMIDE 40MG/4ML VIAL IVP NR (10:00)
[2022-12-02] MEDS: DEXT 5%/0.45% NACL 1000ML 1,000 ML IV SCH (12:14)
[2022-12-02] MEDS ORDERED: LACTULOSE 20G/30ML UDC PO NR (17:00)
[2022-12-02] MEDS ORDERED: BISACODYL 10MG SUPP PR PRN (17:00)
[2022-12-02 17:03] LABS: INR 1.1; PROTHROMBIN TIME 11.4 sec (9.6-11.0)
[2022-12-02 17:06] LABS: TOTAL IRON BINDING CAPACITY 205 ug/dL (250-450)
[2022-12-02 17:27] LABS: FERRITIN 85 ng/mL (10-291)
[2022-12-02 17:38] LABS: VITAMIN B12 SERUM 424 pg/mL (211-911)
[2022-12-02] MEDS ORDERED: VANCOMYCIN 1.25GM PMX (XELLIA) 250 ML IV SCH (18:00)
[2022-12-02] MEDS: DOCUSATE SODIUM 100MG CAPSULE PO SCH (18:28)
[2022-12-02] MEDS: DAPTOMYCIN 800 MG in SODIUM CHLORIDE 0.9% 50 ML IV SCH (18:28)
[2022-12-02] MEDS: DIVALPROEX SODIUM 125MG SPRINKLE CAPSULE PO SCH (21:00)
[2022-12-02] MEDS: SENNOSIDES 8.6MG TABLET PO SCH (21:02)
[2022-12-02] MEDS: HYDROCODONE/ACETAMINOPHEN 10/325MG TABLET PO PRN (21:02)
[2022-12-02 21:45] LABS: HEMATOCRIT 22.3 % (36.0-48.0); HEMOGLOBIN 7.4 g/dL (12.0-16.0)
[2022-12-03] VITALS: BP 107/50
[2022-12-03 00:50] LABS: HEMATOCRIT 23.3 % (36.0-48.0); HEMOGLOBIN 7.8 g/dL (12.0-16.0)
[2022-12-03] MEDS: IPRATROPIUM BROMIDE (0.02%) 0.5MG/2.5ML NEB HHN SCH ×5 (03:55→21:49)
[2022-12-03] MEDS: ALBUTEROL (0.083%) 2.5MG/3ML NEB HHN SCH ×5 (03:55→21:50)
[2022-12-03 04:00] VITALS: BP 110/56
[2022-12-03] MEDS: METHYLPREDNISOLONE SOD SUCC 40 MG/ML VIAL IV SCH (05:00)
[2022-12-03 05:51] LABS: CHLORIDE 102 mEq/L (98-107)
[2022-12-03 06:37] LABS: HEMATOCRIT. 22.1 % (36.0-48.0); HEMOGLOBIN. 7.5 g/dL (12.0-16.0); MEAN PLATELET VOLUME 8.8 fl (7.4-10.4); PLATELET 231 x1000/uL (130-400); RED BLOOD CELL COUNT 2.57 mill/uL (4.2-5.4); RED CELL DISTRIBUTION WIDTH 15.9 % (11.6-14.6)
[2022-12-03] MEDS: LEVETIRACETAM 250MG TABLET PO SCH ×2 (09:33→20:44)
[2022-12-03] MEDS: ATORVASTATIN CALCIUM 40MG TABLET PO SCH (09:33)
[2022-12-03] MEDS: DONEPEZIL HCL 5MG TABLET PO SCH (09:33)
[2022-12-03] MEDS: AMLODIPINE 5MG TABLET PO SCH ×2 (09:33→16:32)
[2022-12-03] MEDS: PANTOPRAZOLE SODIUM 40 MG/VIAL IV SCH (09:33)
[2022-12-03] MEDS: CARVEDILOL 12.5MG TABLET PO SCH ×2 (09:34→16:32)
[2022-12-03] MEDS: DOCUSATE SODIUM 100MG CAPSULE PO SCH ×2 (09:34→16:31)
[2022-12-03 09:40] LABS: HEMATOCRIT 20.4 % (36.0-48.0); HEMOGLOBIN 6.6 g/dL (12.0-16.0); RED BLOOD CELL COUNT 2.27 mill/uL (4.2-5.4); RED CELL DISTRIBUTION WIDTH 15.1 % (11.6-14.6)
[2022-12-03 09:41] LABS: PLATELET 246 x1000/uL (130-400)
[2022-12-03 12:00] VITALS: BP 96/49
[2022-12-03 12:48] LABS: HEMATOCRIT 22.2 % (36.0-48.0); HEMOGLOBIN 7.5 g/dL (12.0-16.0)
[2022-12-03 13:25] LABS: PLATELET ESTIMATE NORMAL
[2022-12-03 14:00] VITALS: BP 101/51
[2022-12-03] MEDS: DEXT 5%/0.45% NACL 1000ML 1,000 ML IV SCH (14:14)
[2022-12-03] MEDS: PANTOT AC/MIN OIL/PET HY-PHL OINT (AQUAPHOR) TOP SCH (14:16)
[2022-12-03 15:49] LABS: PLATELET ESTIMATE NORMAL
[2022-12-03 16:00] VITALS: BP 106/50
[2022-12-03] MEDS: DAPTOMYCIN IV SCH (16:33)
[2022-12-03] MEDS: SODIUM CHLORIDE 0.9% IV SCH (16:33)
[2022-12-03] MEDS: HYDROCODONE/ACETAMINOPHEN 10/325MG TABLET PO PRN (17:14)
[2022-12-03 20:00] VITALS: BP 98/44
[2022-12-03] MEDS: SENNOSIDES 8.6MG TABLET PO SCH (20:44)
[2022-12-03] MEDS: DIVALPROEX SODIUM 125MG SPRINKLE CAPSULE PO SCH (20:44)
[2022-12-04] VITALS (9 sets, daily range): BP systolic 93–128; BP diastolic 48–72
[2022-12-04] MEDS: ALBUTEROL (0.083%) 2.5MG/3ML NEB HHN SCH ×6 (00:30→21:40)
[2022-12-04] MEDS: IPRATROPIUM BROMIDE (0.02%) 0.5MG/2.5ML NEB HHN SCH ×6 (00:30→21:40)
[2022-12-04 06:25] LABS: HEMATOCRIT. 24.5 % (36.0-48.0); HEMOGLOBIN. 8.1 g/dL (12.0-16.0); MEAN CORPUSCULAR VOLUME 88.2 fL (81.0-99.0); MEAN PLATELET VOLUME 8.5 fl (7.4-10.4); PLATELET 327 x1000/uL (130-400); RED BLOOD CELL COUNT 2.78 mill/uL (4.2-5.4); RED CELL DISTRIBUTION WIDTH 15.5 % (11.6-14.6)
[2022-12-04 06:39] LABS: CHLORIDE 104 mEq/L (98-107)
[2022-12-04] MEDS: LEVETIRACETAM 250MG TABLET PO SCH ×2 (09:41→21:06)
[2022-12-04] MEDS: CARVEDILOL 12.5MG TABLET PO SCH ×2 (09:42→17:00)
[2022-12-04] MEDS: ATORVASTATIN CALCIUM 40MG TABLET PO SCH (09:43)
[2022-12-04] MEDS: AMLODIPINE 5MG TABLET PO SCH ×2 (09:44→17:00)
[2022-12-04] MEDS: PANTOPRAZOLE SODIUM 40 MG/VIAL IV SCH (09:44)
[2022-12-04] MEDS: DOCUSATE SODIUM 100MG CAPSULE PO SCH ×2 (09:44→17:06)
[2022-12-04] MEDS: DONEPEZIL HCL 5MG TABLET PO SCH (09:44)
[2022-12-04] MEDS: PANTOT AC/MIN OIL/PET HY-PHL OINT (AQUAPHOR) TOP SCH (09:45)
[2022-12-04] MEDS: PREDNISONE 20MG TABLET PO SCH (10:00)
[2022-12-04] MEDS: HYDROCODONE/ACETAMINOPHEN 10/325MG TABLET PO PRN (12:42)
[2022-12-04] MEDS: DEXT 5%/0.45% NACL 1000ML 1,000 ML IV SCH (12:42)
[2022-12-04] MEDS: CEFEPIME 1,000 MG in DEXTROSE 5% WATER 50 ML IV SCH (17:07)
[2022-12-04] MEDS: METRONIDAZOLE 500MG TABLET PO SCH ×2 (17:07→21:06)
[2022-12-04] MEDS: SODIUM CHLORIDE 0.9% IV SCH (17:15)
[2022-12-04] MEDS: DAPTOMYCIN IV SCH (17:15)
[2022-12-04 20:43] LABS: PLATELET ESTIMATE NORMAL
[2022-12-04] MEDS: DIVALPROEX SODIUM 125MG SPRINKLE CAPSULE PO SCH (21:06)
[2022-12-04] MEDS: SENNOSIDES 8.6MG TABLET PO SCH (21:06)
[2022-12-05] VITALS (8 sets, daily range): BP systolic 111–126; BP diastolic 53–62
[2022-12-05] MEDS: IPRATROPIUM BROMIDE (0.02%) 0.5MG/2.5ML NEB HHN SCH ×7 (01:00→23:50)
[2022-12-05] MEDS: ALBUTEROL (0.083%) 2.5MG/3ML NEB HHN SCH ×7 (01:01→23:50)
[2022-12-05] MEDS: METRONIDAZOLE 500MG TABLET PO SCH ×3 (05:23→21:06)
[2022-12-05] MEDS: CEFEPIME 1,000 MG in DEXTROSE 5% WATER 50 ML IV SCH ×2 (05:23→18:27)
[2022-12-05 06:30] LABS: HEMATOCRIT. 22.3 % (36.0-48.0); HEMOGLOBIN. 7.2 g/dL (12.0-16.0); MEAN CORPUSCULAR VOLUME 89.2 fL (81.0-99.0); MEAN PLATELET VOLUME 8.5 fl (7.4-10.4); PLATELET 360 x1000/uL (130-400); RED BLOOD CELL COUNT 2.49 mill/uL (4.2-5.4); RED CELL DISTRIBUTION WIDTH 15.2 % (11.6-14.6)
[2022-12-05 06:40] LABS: CHLORIDE 98 mEq/L (98-107)
[2022-12-05 06:52] LABS: CREATINE KINASE 61 IU/L (26-192)
[2022-12-05] MEDS: DONEPEZIL HCL 5MG TABLET PO SCH (08:13)
[2022-12-05] MEDS: PANTOPRAZOLE SODIUM 40 MG/VIAL IV SCH (08:13)
[2022-12-05] MEDS: DOCUSATE SODIUM 100MG CAPSULE PO SCH ×3 (08:14→16:20)
[2022-12-05] MEDS: LEVETIRACETAM 250MG TABLET PO SCH ×2 (08:14→21:06)
[2022-12-05] MEDS: ATORVASTATIN CALCIUM 40MG TABLET PO SCH (08:14)
[2022-12-05] MEDS: CARVEDILOL 12.5MG TABLET PO SCH ×2 (08:14→16:23)
[2022-12-05] MEDS: PANTOT AC/MIN OIL/PET HY-PHL OINT (AQUAPHOR) TOP SCH (08:15)
[2022-12-05] MEDS: PREDNISONE 20MG TABLET PO SCH (08:15)
[2022-12-05] MEDS: AMLODIPINE 5MG TABLET PO SCH ×2 (08:20→16:23)
[2022-12-05] MEDS: DEXT 5%/0.45% NACL 1000ML 1,000 ML IV SCH (10:22)
[2022-12-05 13:09] LABS: NUCLEATED RED BLOOD CELLS 1 /100 WBC
[2022-12-05 13:10] LABS: PLATELET ESTIMATE NORMAL
[2022-12-05] MEDS: ACETAMINOPHEN 325MG TABLET PO PRN (16:23)
[2022-12-05] MEDS: SODIUM CHLORIDE 0.9% IV SCH (17:46)
[2022-12-05] MEDS: DAPTOMYCIN IV SCH (17:46)
[2022-12-05] MEDS ORDERED: LORAZEPAM 2MG/ML CPJ IV PRN (20:30)
[2022-12-05] MEDS: SENNOSIDES 8.6MG TABLET PO SCH (21:06)
[2022-12-05] MEDS: DIVALPROEX SODIUM 125MG SPRINKLE CAPSULE PO SCH (21:06)
[2022-12-06] VITALS (7 sets, daily range): BP systolic 104–131; BP diastolic 43–67
[2022-12-06] MEDS: ALBUTEROL (0.083%) 2.5MG/3ML NEB HHN SCH ×6 (04:31→23:40)
[2022-12-06] MEDS: IPRATROPIUM BROMIDE (0.02%) 0.5MG/2.5ML NEB HHN SCH ×6 (04:33→23:40)
[2022-12-06 06:27] LABS: HEMATOCRIT. 26.1 % (36.0-48.0); HEMOGLOBIN. 8.7 g/dL (12.0-16.0); MEAN CORPUSCULAR HEMOGLOBIN 28.7 pg (28.0-32.0); MEAN CORPUSCULAR VOLUME 86.6 fL (81.0-99.0); MEAN PLATELET VOLUME 8.1 fl (7.4-10.4); PLATELET 385 x1000/uL (130-400); RED BLOOD CELL COUNT 3.02 mill/uL (4.2-5.4); RED CELL DISTRIBUTION WIDTH 15.1 % (11.6-14.6)
[2022-12-06] MEDS: CEFEPIME 1,000 MG in DEXTROSE 5% WATER 50 ML IV SCH ×2 (06:38→17:53)
[2022-12-06] MEDS: METRONIDAZOLE 500MG TABLET PO SCH ×3 (06:38→20:50)
[2022-12-06 07:37] LABS: CHLORIDE 105 mEq/L (98-107)
[2022-12-06] MEDS: DOCUSATE SODIUM 100MG CAPSULE PO SCH ×2 (09:30→17:00)
[2022-12-06] MEDS: DONEPEZIL HCL 5MG TABLET PO SCH (09:30)
[2022-12-06] MEDS: PREDNISONE 20MG TABLET PO SCH (09:30)
[2022-12-06] MEDS: LEVETIRACETAM 250MG TABLET PO SCH ×2 (09:30→20:50)
[2022-12-06] MEDS: ATORVASTATIN CALCIUM 40MG TABLET PO SCH (09:30)
[2022-12-06] MEDS: AMLODIPINE 5MG TABLET PO SCH ×2 (09:30→17:53)
[2022-12-06] MEDS: PANTOPRAZOLE SODIUM 40 MG/VIAL IV SCH (09:30)
[2022-12-06] MEDS: PANTOT AC/MIN OIL/PET HY-PHL OINT (AQUAPHOR) TOP SCH (09:32)
[2022-12-06] MEDS: CARVEDILOL 12.5MG TABLET PO SCH ×2 (09:36→17:53)
[2022-12-06] MEDS ORDERED: ACETAMINOPHEN 650MG/20.3ML UDC PO NR (10:15)
[2022-12-06] MEDS ORDERED: NALOXONE HCL 0.4MG/ML VIAL IV PRN (10:15)
[2022-12-06] MEDS: MORPHINE SULFATE 2 MG/ML CPJ (NOT FOR IM USE) IV PRN ×2 (10:51→18:00)
[2022-12-06 13:00] LABS: PLATELET ESTIMATE NORMAL
[2022-12-06] MEDS: DEXT 5%/0.45% NACL 1000ML 1,000 ML IV SCH (16:24)
[2022-12-06] MEDS: SODIUM CHLORIDE 0.9% IV SCH (18:13)
[2022-12-06] MEDS: DAPTOMYCIN IV SCH (18:13)
[2022-12-06] MEDS: DIVALPROEX SODIUM 125MG SPRINKLE CAPSULE PO SCH (20:50)
[2022-12-06] MEDS: SENNOSIDES 8.6MG TABLET PO SCH (20:50)
[2022-12-07] VITALS (23 sets, daily range): BP systolic 104–133; BP diastolic 42–62
[2022-12-07] MEDS: DEXT 5%/0.45% NACL 1000ML 1,000 ML IV SCH (00:13)
[2022-12-07] MEDS: IPRATROPIUM BROMIDE (0.02%) 0.5MG/2.5ML NEB HHN SCH ×5 (04:03→21:20)
[2022-12-07] MEDS: ALBUTEROL (0.083%) 2.5MG/3ML NEB HHN SCH ×5 (04:04→21:20)
[2022-12-07] MEDS: CEFEPIME 1,000 MG in DEXTROSE 5% WATER 50 ML IV SCH ×2 (05:04→17:33)
[2022-12-07] MEDS: METRONIDAZOLE 500MG TABLET PO SCH ×3 (05:07→21:30)
[2022-12-07 06:53] LABS: HEMOGLOBIN. 9.2 g/dL (12.0-16.0); MEAN CORPUSCULAR VOLUME 88.1 fL (81.0-99.0); MEAN PLATELET VOLUME 7.8 fl (7.4-10.4); PLATELET 433 x1000/uL (130-400); RED BLOOD CELL COUNT 3.18 mill/uL (4.2-5.4); RED CELL DISTRIBUTION WIDTH 14.9 % (11.6-14.6)
[2022-12-07 07:05] LABS: CHLORIDE 103 mEq/L (98-107)
[2022-12-07] MEDS: ATORVASTATIN CALCIUM 40MG TABLET PO SCH (08:30)
[2022-12-07] MEDS: PREDNISONE 20MG TABLET PO SCH (08:31)
[2022-12-07] MEDS: DONEPEZIL HCL 5MG TABLET PO SCH (08:31)
[2022-12-07] MEDS: DOCUSATE SODIUM 100MG CAPSULE PO SCH ×2 (08:31→17:32)
[2022-12-07] MEDS: AMLODIPINE 5MG TABLET PO SCH ×2 (08:31→17:32)
[2022-12-07] MEDS: CARVEDILOL 12.5MG TABLET PO SCH ×2 (08:31→17:32)
[2022-12-07] MEDS: PANTOPRAZOLE SODIUM 40 MG/VIAL IV SCH (08:32)
[2022-12-07] MEDS: LEVETIRACETAM 250MG TABLET PO SCH ×2 (08:32→21:30)
[2022-12-07] MEDS: PANTOT AC/MIN OIL/PET HY-PHL OINT (AQUAPHOR) TOP SCH (08:32)
[2022-12-07 10:40] LABS: PLATELET ESTIMATE SLIGHTLY INCREASED
[2022-12-07] MEDS: DAPTOMYCIN IV SCH (17:33)
[2022-12-07] MEDS: SODIUM CHLORIDE 0.9% IV SCH (17:33)
[2022-12-07] MEDS: SENNOSIDES 8.6MG TABLET PO SCH (21:30)
[2022-12-07] MEDS: DIVALPROEX SODIUM 125MG SPRINKLE CAPSULE PO SCH (21:30)
[2022-12-08] VITALS: BP 110/45
[2022-12-08 04:00] VITALS: BP 122/58
[2022-12-08] MEDS: ALBUTEROL (0.083%) 2.5MG/3ML NEB HHN SCH ×6 (04:00→21:11)
[2022-12-08] MEDS: IPRATROPIUM BROMIDE (0.02%) 0.5MG/2.5ML NEB HHN SCH ×6 (04:00→21:11)
[2022-12-08] MEDS: CEFEPIME 1,000 MG in DEXTROSE 5% WATER 50 ML IV SCH ×2 (05:10→17:14)
[2022-12-08] MEDS: METRONIDAZOLE 500MG TABLET PO SCH ×3 (05:26→21:37)
[2022-12-08 07:48] LABS: HEMATOCRIT. 28.3 % (36.0-48.0); HEMOGLOBIN. 9.4 g/dL (12.0-16.0); MEAN CORPUSCULAR VOLUME 87.2 fL (81.0-99.0); MEAN PLATELET VOLUME 7.6 fl (7.4-10.4); PLATELET 447 x1000/uL (130-400); RED BLOOD CELL COUNT 3.25 mill/uL (4.2-5.4)
[2022-12-08 08:13] LABS: CHLORIDE 105 mEq/L (98-107)
[2022-12-08 10:00] VITALS: BP 113/54
[2022-12-08] MEDS: DONEPEZIL HCL 5MG TABLET PO SCH (10:12)
[2022-12-08] MEDS: PANTOPRAZOLE SODIUM 40 MG/VIAL IV SCH (10:12)
[2022-12-08] MEDS: ATORVASTATIN CALCIUM 40MG TABLET PO SCH (10:13)
[2022-12-08] MEDS: DOCUSATE SODIUM 100MG CAPSULE PO SCH ×2 (10:13→17:01)
[2022-12-08] MEDS: PREDNISONE 20MG TABLET PO SCH (10:13)
[2022-12-08] MEDS: LEVETIRACETAM 250MG TABLET PO SCH ×2 (10:13→21:37)
[2022-12-08] MEDS: PANTOT AC/MIN OIL/PET HY-PHL OINT (AQUAPHOR) TOP SCH ×2 (10:15→10:23)
[2022-12-08] MEDS: AMLODIPINE 5MG TABLET PO SCH ×2 (10:16→17:08)
[2022-12-08] MEDS: CARVEDILOL 12.5MG TABLET PO SCH ×2 (10:16→17:08)
[2022-12-08 12:00] VITALS: BP 120/44
[2022-12-08] MEDS: DEXT 5%/0.45% NACL 1000ML 1,000 ML IV SCH (12:14)
[2022-12-08 13:46] LABS: NUCLEATED RED BLOOD CELLS 2 /100 WBC
[2022-12-08 13:47] LABS: PLATELET ESTIMATE SLIGHTLY INCREASED
[2022-12-08 16:00] VITALS: BP 123/51
[2022-12-08] MEDS: SODIUM CHLORIDE 0.9% IV SCH (17:01)
[2022-12-08] MEDS: DAPTOMYCIN IV SCH (17:01)
[2022-12-08 20:00] VITALS: BP 106/40
[2022-12-08] MEDS: DIVALPROEX SODIUM 125MG SPRINKLE CAPSULE PO SCH (21:37)
[2022-12-08] MEDS: SENNOSIDES 8.6MG TABLET PO SCH (21:37)
[2022-12-09] VITALS: BP 120/59
[2022-12-09] MEDS: ALBUTEROL (0.083%) 2.5MG/3ML NEB HHN SCH ×3 (00:35→21:22)
[2022-12-09] MEDS: IPRATROPIUM BROMIDE (0.02%) 0.5MG/2.5ML NEB HHN SCH ×3 (00:35→21:22)
[2022-12-09 04:00] VITALS: BP 126/62
[2022-12-09] MEDS: CEFEPIME 1,000 MG in DEXTROSE 5% WATER 50 ML IV SCH ×2 (05:15→17:07)
[2022-12-09] MEDS: METRONIDAZOLE 500MG TABLET PO SCH ×2 (05:15→17:07)
[2022-12-09 07:32] LABS: HEMATOCRIT. 28.1 % (36.0-48.0); HEMOGLOBIN. 9.4 g/dL (12.0-16.0); MEAN CORPUSCULAR HEMOGLOBIN 28.7 pg (28.0-32.0); MEAN PLATELET VOLUME 7.3 fl (7.4-10.4); PLATELET 420 x1000/uL (130-400); RED BLOOD CELL COUNT 3.26 mill/uL (4.2-5.4); RED CELL DISTRIBUTION WIDTH 14.9 % (11.6-14.6)
[2022-12-09 08:00] VITALS: BP 109/53
[2022-12-09 08:17] LABS: CHLORIDE 103 mEq/L (98-107)
[2022-12-09] MEDS: CARVEDILOL 12.5MG TABLET PO SCH ×2 (09:00→16:49)
[2022-12-09] MEDS: AMLODIPINE 5MG TABLET PO SCH ×2 (09:00→16:49)
[2022-12-09] MEDS: PREDNISONE 20MG TABLET PO SCH (09:30)
[2022-12-09] MEDS: DOCUSATE SODIUM 100MG CAPSULE PO SCH ×2 (09:32→16:48)
[2022-12-09] MEDS: ATORVASTATIN CALCIUM 40MG TABLET PO SCH (09:33)
[2022-12-09] MEDS: DONEPEZIL HCL 5MG TABLET PO SCH (09:33)
[2022-12-09] MEDS: PANTOPRAZOLE SODIUM 40 MG/VIAL IV SCH (09:33)
[2022-12-09] MEDS: LEVETIRACETAM 250MG TABLET PO SCH (09:33)
[2022-12-09] MEDS: PANTOT AC/MIN OIL/PET HY-PHL OINT (AQUAPHOR) TOP SCH (09:34)
[2022-12-09] MEDS: POTASSIUM CHLORIDE 20MEQ TABLET SR PO NR ×2 (09:54→10:58)
[2022-12-09] MEDS: DEXT 5%/0.45% NACL 1000ML 1,000 ML IV SCH (10:59)
[2022-12-09 12:00] VITALS: BP 125/55
[2022-12-09 13:53] LABS: PLATELET ESTIMATE SLIGHTLY INCREASED
[2022-12-09 16:00] VITALS: BP 113/51
[2022-12-09] MEDS: DAPTOMYCIN IV SCH (17:07)
[2022-12-09] MEDS: SODIUM CHLORIDE 0.9% IV SCH (17:07)
[2022-12-09 18:16] VITALS: BP 119/59
== END 2022-12-09 20:22 | DRG 853 ==
LOC: ER 18:04 → 3WST 11-24 02:23 → EDBEDREQ 11-24 02:41 → EDBEDREQSVC 11-24 02:41 → EDBEDREQTM 11-24 02:41 → 5EST 11-25 01:43 → 7WST 12-07 19:57
PROVIDERS: ADMIT Internal Medicine; ATTEND Internal Medicine
PROC: 02HV33Z Insertion of Infusion Device into Superior Vena Cava, Percutaneous Approach (ICD-10-PCS; principal; 2022-11-25)
PROC: B548ZZA Ultrasonography of Superior Vena Cava, Guidance (ICD-10-PCS; 2022-11-25)
PROC: 5A09357 Assistance with Respiratory Ventilation, Less than 24 Consecutive Hours, Continuous Positive Airway Pressure (ICD-10-PCS; 2022-11-25)
PROC: 5A09357 Assistance with Respiratory Ventilation, Less than 24 Consecutive Hours, Continuous Positive Airway Pressure (ICD-10-PCS; 2022-11-26)
PROC: 5A09357 Assistance with Respiratory Ventilation, Less than 24 Consecutive Hours, Continuous Positive Airway Pressure (ICD-10-PCS; 2022-11-27)
PROC: 5A09357 Assistance with Respiratory Ventilation, Less than 24 Consecutive Hours, Continuous Positive Airway Pressure (ICD-10-PCS; 2022-11-28)
PROC: 30233N1 Transfusion of Nonautologous Red Blood Cells into Peripheral Vein, Percutaneous Approach (ICD-10-PCS; 2022-11-29)
PROC: 0Y6C0Z3 Detachment at Right Upper Leg, Low, Open Approach (ICD-10-PCS; 2022-11-29)
PROC: 0Y6D0Z3 Detachment at Left Upper Leg, Low, Open Approach (ICD-10-PCS; 2022-11-29)
PROC: 5A09357 Assistance with Respiratory Ventilation, Less than 24 Consecutive Hours, Continuous Positive Airway Pressure (ICD-10-PCS; 2022-11-30)
PROC: 5A09357 Assistance with Respiratory Ventilation, Less than 24 Consecutive Hours, Continuous Positive Airway Pressure (ICD-10-PCS; 2022-12-01)
PROC: 5A09357 Assistance with Respiratory Ventilation, Less than 24 Consecutive Hours, Continuous Positive Airway Pressure (ICD-10-PCS; 2022-12-02)
DX: A41.02 Sepsis due to Methicillin resistant Staphylococcus aureus (principal); I50.33 Acute on chronic diastolic (congestive) heart failure; J96.92 Respiratory failure, unspecified with hypercapnia; J96.91 Respiratory failure, unspecified with hypoxia; J44.1 Chronic obstructive pulmonary disease with (acute) exacerbation; E87.29 Other acidosis; G93.40 Encephalopathy, unspecified; L89.629 Pressure ulcer of left heel, unspecified stage; L89.619 Pressure ulcer of right heel, unspecified stage; I11.0 Hypertensive heart disease with heart failure; F03.90 Unspecified dementia, unspecified severity, without behavioral disturbance, psychotic disturbance, mood disturbance, and anxiety; E87.6 Hypokalemia; I89.0 Lymphedema, not elsewhere classified; I73.9 Peripheral vascular disease, unspecified; K21.9 Gastro-esophageal reflux disease without esophagitis; G54.7 Phantom limb syndrome without pain; E78.5 Hyperlipidemia, unspecified; D64.9 Anemia, unspecified; G40.909 Epilepsy, unspecified, not intractable, without status epilepticus; I07.1 Rheumatic tricuspid insufficiency; I27.21 Secondary pulmonary arterial hypertension; Z20.822 Contact with and (suspected) exposure to COVID-19; Z87.891 Personal history of nicotine dependence; Z86.73 Personal history of transient ischemic attack (TIA), and cerebral infarction without residual deficits; Z86.718 Personal history of other venous thrombosis and embolism; Z82.49 Family history of ischemic heart disease and other diseases of the circulatory system; Z79.01 Long term (current) use of anticoagulants; Z95.828 Presence of other vascular implants and grafts; K57.90 Diverticulosis of intestine, part unspecified, without perforation or abscess without bleeding
CPT/HCPCS: 36415; 36573; 36600; 71045; 73630; 74176; 75635; 80048; 80053; 80076; 80202; 81003; 82140; 82270; 82375; 82550; 82607; 82728; 82746; 82805; 83036; 83540; 83550; 83605; 83735; 83880; 84145; 84484; 85014; 85018; 85025; 85027; 85044; 85651; 86850; 86900; 86920; 87070; 87075; 87077; 87186; 87426; 88307; 88311; 92610; 93005; 93306; 93923; 93970; 94640; 94660; 97110; 97162; 97168; 97530; 99285; A6261; C1725; C9113; J0692; J0878; J1100; J1170; J1650; J1940; J2250; J2270; J2405; J2543; J2704; J2920; J3010; J3370; J3480; J3490; J7060; J7512; P9016; Q9967